=== PATIENT | male | born 1935 | race Caucasian/White ===

== ENCOUNTER → 2018-03-10 14:42 | Outpatient (CLI) | payer MEDICARE, BC, SELFPAY ==
--- NOTE | 2018-03-10 | DI.RAD.S_ITS ---
PROCEDURE: XR CHEST 2V INDICATIONS: ACUTE BRONCHITIS TECHNIQUE: 2 views of the chest were acquired. COMPARISON: [facility], , CHEST 1 VIEW, 09/15/2014, 14:08. [facility], , CHEST 2 VIEW, 11/05/2013, 12:27. FINDINGS: Surgical changes and devices: None. Lungs and pleura: No pleural effusions or pneumothorax. Lungs are clear. Mediastinum: Mediastinal contours are normal. Heart size is normal. Bones and chest wall: No suspicious bony abnormalities. Soft tissues appear unremarkable. IMPRESSION: No pneumonia found. Dictated by: Adan Stoll M.D. on 03/10/2018 at 15:32 Approved by: Adan Stoll M.D. on 03/10/2018 at 15:32
== END ==
PROVIDERS: PCP Internal Medicine; Visit Provider Student in an Organized Health Care Education/Training Program
DX: J20.9 Acute bronchitis, unspecified (principal)
CPT/HCPCS: 71046

== ENCOUNTER → 2018-03-25 14:28 | Outpatient (CLI) | payer MEDICARE, BC, SELFPAY ==
[2018-03-25 16:08] LABS: Hemoglobin A1C% w Est Avg Glu 6.4 % (4.0-6.0)
== END ==
PROVIDERS: PCP Internal Medicine; Visit Provider Internal Medicine
DX: E11.21 Type 2 diabetes mellitus with diabetic nephropathy (principal)
CPT/HCPCS: 36415; 83036

== ENCOUNTER → 2018-09-16 10:20 | Outpatient (CLI) | payer MEDICARE, BC, SELFPAY ==
[2018-09-16 11:37] LABS: Hemoglobin A1C% w Est Avg Glu 6.9 % (4.0-6.0)
[2018-09-16 11:47] LABS: Alanine Aminotransferase 81 IU/L (21-72); Albumin 4.5 g/dL (3.5-5.0); Albumin Globulin Ratio 1.8 (1.0-2.8); Alkaline Phosphatase 43 U/L (38-126); Aspartate Aminotransferase 53 IU/L (17-59); BUN Creatinine Ratio 12.9 (6-22); Bilirubin Total 0.5 mg/dL (0.2-1.3); Blood Urea Nitrogen 18 mg/dL (9-20); Calcium 9.9 mg/dL (8.4-10.2); Carbon Dioxide 24 mmol/L (22-32); Chloride 105 mmol/L (98-107); Cholesterol 155 mg/dL (140-199); Estimated Glomerular Filt Rate 48.3 mL/min (>60); Globulin 2.5 g/dL (1.7-4.1); Glucose 166 mg/dL (80-110); HDL Cholesterol 38 mg/dL (40-60); HEMOLYSIS < 15 (0-50); LDL Cholesterol Calculated 88 mg/dL (<100); Potassium 5.1 mmol/L (3.4-5.1); Sodium 141 mmol/L (137-145); Triglycerides 147 mg/dL (35-150)
[2018-09-16 12:16] LABS: Creatinine Urine Random 116.7 mg/dL
[2018-09-16 12:17] LABS: Prostate Specific Antigen Scrn 4.44 ng/mL (0.1-4.0)
[2018-09-16 12:21] LABS: Microalbumi Creatinin Ratio Ur 51.4 ug/mg CR (<30)
== END ==
PROVIDERS: PCP Student in an Organized Health Care Education/Training Program; Visit Provider Student in an Organized Health Care Education/Training Program
DX: N40.1 Benign prostatic hyperplasia with lower urinary tract symptoms (principal); I10 Essential (primary) hypertension; N18.9 Chronic kidney disease, unspecified; E78.1 Pure hyperglyceridemia; E11.40 Type 2 diabetes mellitus with diabetic neuropathy, unspecified; Z12.5 Encounter for screening for malignant neoplasm of prostate
CPT/HCPCS: 36415; 80053; 80061; 82043; 82570; 83036; G0103

== ENCOUNTER → 2018-09-22 15:35 | Outpatient (CLI) | payer MEDICARE, BC, SELFPAY ==
--- NOTE | 2018-09-22 | DI.RAD.S_ITS ---
PROCEDURE: XR CHEST 2V INDICATIONS: COUGH TECHNIQUE: 2 views of the chest were acquired. COMPARISON: [facility], , XR CHEST 2V, 03/10/2018, 14:24. [facility], , CHEST 1 VIEW, 09/15/2014, 14:08. FINDINGS: Surgical changes and devices: None. Lungs and pleura: No pleural effusions or pneumothorax. Lungs are clear. Tracheal air column is narrowed at the thoracic inlet to approximately half the normal diameter but this is stable over time. Mediastinum: Mediastinal contours are normal. Heart size is normal. Bones and chest wall: No suspicious bony abnormalities. Soft tissues appear unremarkable. IMPRESSION: No change of address clerk time, source of new cough symptoms is not seen. Note is made of a relative narrowing of the tracheal airway at the thoracic inlet but this has been previously present 11/05/13, without worsening. Dictated by: Adan Stoll M.D. on 09/22/2018 at 16:05 Approved by: Adan Stoll M.D. on 09/22/2018 at 16:05
== END ==
PROVIDERS: PCP Student in an Organized Health Care Education/Training Program; Visit Provider Student in an Organized Health Care Education/Training Program
DX: R05 Cough (principal)
CPT/HCPCS: 71046

== ENCOUNTER → 2018-09-26 12:14 | Outpatient (CLI) | payer MEDICARE, BC, SELFPAY ==
--- NOTE | 2018-09-26 | DI.US.S_ITS ---
PROCEDURE: US ABD AORTA ANEURYSM SCREEN INDICATIONS: SCREENING TECHNIQUE: Real time scanning was performed of the aorta and iliac arteries, with image documentation. COMPARISON: None. FINDINGS: Aorta: Proximal aortic is not visualized. Mid-aorta measures 2.3 cm. Distal aortic diameter is 2.0 cm. Iliac arteries: Right common iliac artery measures 1.5 cm. Left common iliac artery measures 1.4 cm. IMPRESSION: No aneurysmal dilation. Proximal aorta is not evaluated as it is not visualized. Dictated by: Radha Tierney M.D. on 09/26/2018 at 15:54 Approved by: Radha Tierney M.D. on 09/26/2018 at 15:55
== END ==
PROVIDERS: PCP Student in an Organized Health Care Education/Training Program; Visit Provider Student in an Organized Health Care Education/Training Program
DX: Z13.6 Encounter for screening for cardiovascular disorders (principal)
CPT/HCPCS: 76706

== ENCOUNTER → 2019-06-22 14:21 | Outpatient (CLI) | payer MEDICARE, OTHER, SELFPAY ==
--- NOTE | 2019-06-22 | DI.RAD.S_ITS ---
PROCEDURE: XR CHEST 2V INDICATIONS: ACUTE BRONCHITIS TECHNIQUE: 2 views of the chest were acquired. COMPARISON: [facility], CR, XR CHEST 2V, 09/22/2018, 15:41. CT abdomen pelvis 09/21/2015. FINDINGS: Surgical changes and devices: None. Lungs and pleura: No consolidation. Increased interstitial markings similar to the prior exam. No pleural effusions or pneumothorax. Mediastinum: Mediastinal contours are normal. Heart size is normal. Bones and chest wall: No suspicious bony abnormalities. Soft tissues appear unremarkable. IMPRESSION: No acute cardiopulmonary abnormality. Dictated by: Castillo Thomas M.D. on 06/22/2019 at 15:07 Approved by: Castillo Thomas M.D. on 06/22/2019 at 15:08
== END ==
PROVIDERS: PCP Student in an Organized Health Care Education/Training Program; Visit Provider Student in an Organized Health Care Education/Training Program
DX: J20.9 Acute bronchitis, unspecified (principal)
CPT/HCPCS: 71046

== ENCOUNTER → 2019-08-10 18:34 | Outpatient (ROUT) | payer MEDICARE, OTHER, SELFPAY ==
[2019-08-10 18:59] LABS: Add Manual Diff / Slide Review NO; Basophils Absolute Auto 0 /uL (0-100); Basophils Percent Auto 0.5 % (0-2); Eosinophils Absolute Auto 100 /uL (0-450); Eosinophils Percent Auto 0.7 % (2-4); Hematocrit 43.1 % (41-53); Hemoglobin 14.9 g/dL (13.5-17.5); Lymphocytes Absolute Auto 1600 /uL (1100-4500); Lymphocytes Percent Auto 21.6 % (25-40); Mean Corpuscular HGB Conc 34.5 % (30-36); Mean Corpuscular Hemoglobin 33.1 PG (26-34); Mean Corpuscular Volume 96.1 fL (80-100); Monocytes Absolute Auto 900 /uL (0-900); Monocytes Percent Auto 11.5 % (3-14); Neutrophils Absolute Auto 4900 /uL (1500-7000); Neutrophils Percent Auto 65.7 % (50-75); Platelet Count 212 X10^3/uL (150-400); Red Blood Cell Count 4.48 X10^6/uL (4.5-5.9); Red Cell Distribution Width 13.3 % (11.6-14.8); White Blood Cell Count 7.5 X10^3/uL (4.5-11.0)
[2019-08-10 19:03] LABS: Alanine Aminotransferase 45 IU/L (<50); Albumin 4.7 g/dL (3.5-5.0); Albumin Globulin Ratio 1.8 (1.0-2.8); Alkaline Phosphatase 52 U/L (38-126); Aspartate Aminotransferase 33 IU/L (17-59); BUN Creatinine Ratio 24.6 (6-22); Bilirubin Total 0.5 mg/dL (0.2-1.3); Blood Urea Nitrogen 32 mg/dL (9-20); Calcium 10.6 mg/dL (8.4-10.2); Carbon Dioxide 19 mmol/L (22-32); Chloride 105 mmol/L (98-107); Estimated Glomerular Filt Rate 52.5 mL/min (>60); Globulin 2.6 g/dL (1.7-4.1); Glucose 149 mg/dL (80-110); HEMOLYSIS 17 (0-50); Potassium 4.7 mmol/L (3.4-5.1); Sodium 138 mmol/L (137-145); Total Protein 7.3 g/dL (6.3-8.2)
== END ==
PROVIDERS: PCP Student in an Organized Health Care Education/Training Program; Visit Provider Student in an Organized Health Care Education/Training Program
DX: G47.62 Sleep related leg cramps (principal); N18.9 Chronic kidney disease, unspecified; I10 Essential (primary) hypertension; E11.21 Type 2 diabetes mellitus with diabetic nephropathy
CPT/HCPCS: 80053; 85025

== ENCOUNTER 2019-08-26 14:30 | Outpatient (RCR) | payer MEDICARE, OTHER, SELFPAY ==
--- NOTE | 2019-07-13 16:45 | PT.OIE ---
Current Diagnoses Sciatica, left side (07/13/19) Visit Care Team Role Provider Type Yudith Ugalde PA-C Attending Provider Physician Primary Care Provider Specialty: Internal Medicine Address: [address] [place] [address], [id number] Email: [email or web address] Physical Therapy Initial Evaluation PT-OP-A Visit Information Start: 07/13/19 07:26 Freq: Status: Active Protocol: Document 07/13/19 15:30 MB (Rec: 07/13/19 16:21 MB [id number]) Out-Patient Physical Therapy Visit Information Visit Information Visit Type Initial Evaluation Visit Note Medicare, unlimited visits Visit Start Time 15:30 Visit Stop Time 16:20 Total Visit Minutes 50 Visit Number 1/unlimited Number of SHOE FOLDER Visits 0 PT-OP-B Current Condition Start: 07/13/19 07:26 Freq: Status: Active Protocol: Document 07/13/19 15:30 MB (Rec: 07/13/19 16:21 MB [id number]) Current Condition History of Current Condition Onset Date 2 weeks left hip and 1 week right foot Current Complaints Pt reports that he saw provider 2 weeks ago for left hip pain History of Current Condition Pt had been having foot pain for a long time and it took forever to get into the power transformer repair supervisor. He had plantar fasciitis in left foot 01/25. He got a boot. He then had a fall in the shower room of the pool, hit his right knee on the bench and pulled his left hamstring and calf. His left hip bothered him after that. He walked differently after the hamstring injury. He recently got inserts put in his shoes by power transformer repair supervisor 1 week ago and it did something to his walking and it pinches in his right hip. PMH includes: DM2, neuropathy, glaucoma and does not drive. Prior Treatments and Tests He sees power transformer repair supervisor for diabetic neuropathy. He got his right great toe nail cut back. He has little sensation in both feet. He was told that he has good circulation in his feet. Pt has superfeet orthotics in shoes that have parts added by power transformer repair supervisor. Pt states that the orthotics first helped him walk toe-heel better but then his right hip started hurting. He has not talked to power transformer repair supervisor again. He has a follow-up in September. These are the only inserts that pt has. Pt goes to the pool, his feet hurt. He does not have pool shoes. He is barefoot when getting OOB at night. Treatment Goals Patient/Caregiver Goals Goal for PT is to decrease pain. PT-OP-C Subjective Start: 07/13/19 07:26 Freq: Status: Active Protocol: Document 07/13/19 15:30 MB (Rec: 07/13/19 16:24 MB [id number]) OP-PT Subjective Patient Comments Patient Comments To decrease pain PT-OP-J Posture/Palpation/Skin Start: 07/13/19 07:26 Freq: Status: Active Protocol: Document 07/13/19 15:30 MB (Rec: 07/13/19 16:44 MB [id number]) Posture Evaluation Comments Posture Comments Standing: forward head and shoulders, flexed trunk. Tragus 3 in front of AC joint , decreased thoracic kyphosis and lumbar lordosis, lumbar spinous processes posteriorly protruding, left iliac crest higher than the right. R pes planus greater than the left. PT-OP-M Strength Start: 07/13/19 07:26 Freq: Status: Active Protocol: Document 07/13/19 15:30 MB (Rec: 07/13/19 16:44 MB [id number]) Hip Strength Hip Manual Muscle Testing Left Flexion (L2) 3 Fair Abduction 4 Good Comments Sitting Right Flexion (L2) 3 Fair Abduction 3- Fair- Comments Sitting Knee Strength Knee Manual Muscle Testing Left Flexion (S2) 4 Good Extension (L3) 5 Normal Right Flexion (S2) 4 Good Extension (L3) 5 Normal Ankle/Foot Strength Ankle and Foot Manual Muscle Testing Both Comments Pt with limited AROM B feet, he has B decreased sensation and hx diabetic neuropathy. MMT is not accurate d/t decreased ROM, neuropathy. PT-OP-Q Treatments Start: 07/13/19 07:26 Freq: Status: Active Protocol: Document 07/13/19 15:30 MB (Rec: 07/13/19 16:44 MB [id number]) Self-Care/Home Management Treatment Education Other Education Extensive education: no barefoot walking, get aquatic shoes before return to pool d/ t c/o pain with walking barefoot on concrete, trying his [employer] shoes with orthotics altered by power transformer repair supervisor and then with the inserts that came in them to determine a change in hip pain; pillow support between knees in side lying. PT-OP-T Assessment and Plan Start: 07/13/19 07:26 Freq: Status: Active Protocol: Document 07/13/19 15:30 MB (Rec: 07/13/19 16:44 MB [id number]) Physical Therapy Assessment Rehab Potential Rehabilitation Potential Fair Impairments Impairments Balance,Gait,Integument,Pain, Posture,ROM,Sensation,Soft Tissue Mobility,Strength Goals 4 Half-Way Goal (LTG) Pt will perform progressive HEP including pelvic realignment, flexibility, core and LE strengthening and balance exercises with I by 09/12/19. LTG Duration 8 weeks 3 Front End Technician Goal (LTG) Pt will present with improved B hip flexion and abduction strength to at least 4/5 with MMT by 09/12/19. LTG Duration 8 weeks 2 Half-Way Goal (LTG) Pt will report a 50% improvement in B hip pain by . LTG Duration 8 weeks 1 Half-Way Goal (LTG) Pt will perform WNLs on a standardized balance test to decrease fall risk by 09/12/19. LTG Duration 8 weeks Assessment Summary Assessment Pt is an 84 y/o male presenting with B hip pain for at least 2 weeks. He reports initial left hip pain that changed to his right hip after his power transformer repair supervisor altered his Super Feet inserts. Pt presents with pelvic obliquities, B hip and knee weakness and imbalance with standing. He has a history of diabetic neuropathy and foot changes and this is likely affecting his gait and proximal extremity pain. He will benefit from PT for pelvic realignment, flexibility, strengthening, balance and manual work. Physical Therapy Plan Frequency and Duration Frequency of Treatment 2x/Week Duration of Treatment 8 weeks Plan of Care Start Date 07/13/19 Plan of Care End Date 09/12/19 Therapeutic Interventions Therapeutic Interventions Aquatic Therapy,Balance Training,Gait Training,Home Exercise Program,Joint Mobilizations,Manual Therapy, Neuromuscular Re-education, Orthotic/Prosthetic Management ,Patient/Caregiver Education, Self-Care/Home Management,Soft Tissue Mobilization,Taping, Therapeutic Exercises Modalities Cold Pack/Ice Massage,Electric Stimulation,Hot Packs, Ultrasound Next Visit Focus/Plan Next Note Type Treatment Note Next Visit Plan Initiate pelvic realignment exercises and hamstring with calf and hip stretches with belt
--- NOTE | 2019-07-13 16:45 | PT.OPPOC ---
Current Diagnoses Sciatica, left side (07/13/19) Visit Care Team Role Provider Type Yudith Ugalde PA-C Attending Provider Physician Primary Care Provider Specialty: Internal Medicine Address: [address] [place] [address], [phone] Email: [email or web address] Plan Of Care PT-OP-T Assessment and Plan Start: 07/13/19 07:26 Freq: Status: Active Protocol: Document 07/13/19 15:30 MB (Rec: 07/13/19 16:44 MB [id number]) Physical Therapy Assessment Rehab Potential Rehabilitation Potential Fair Impairments Impairments Balance,Gait,Integument,Pain, Posture,ROM,Sensation,Soft Tissue Mobility,Strength Goals 4 Detention Goal (LTG) Pt will perform progressive HEP including pelvic realignment, flexibility, core and LE strengthening and balance exercises with I by 09/12/19. LTG Duration 8 weeks 3 Detention Goal (LTG) Pt will present with improved B hip flexion and abduction strength to at least 4/5 with MMT by 09/12/19. LTG Duration 8 weeks 2 Radiologic Tech Goal (LTG) Pt will report a 50% improvement in B hip pain by . LTG Duration 8 weeks 1 Detention Goal (LTG) Pt will perform WNLs on a standardized balance test to decrease fall risk by 09/12/19. LTG Duration 8 weeks Assessment Summary Assessment Pt is an 84 y/o male presenting with B hip pain for at least 2 weeks. He reports initial left hip pain that changed to his right hip after his director of special education altered his Super Feet inserts. Pt presents with pelvic obliquities, B hip and knee weakness and imbalance with standing. He has a history of diabetic neuropathy and foot changes and this is likely affecting his gait and proximal extremity pain. He will benefit from PT for pelvic realignment, flexibility, strengthening, balance and manual work. Physical Therapy Plan Frequency and Duration Frequency of Treatment 2x/Week Duration of Treatment 8 weeks Plan of Care Start Date 07/13/19 Plan of Care End Date 09/12/19 Therapeutic Interventions Therapeutic Interventions Aquatic Therapy,Balance Training,Gait Training,Home Exercise Program,Joint Mobilizations,Manual Therapy, Neuromuscular Re-education, Orthotic/Prosthetic Management ,Patient/Caregiver Education, Self-Care/Home Management,Soft Tissue Mobilization,Taping, Therapeutic Exercises Modalities Cold Pack/Ice Massage,Electric Stimulation,Hot Packs, Ultrasound Next Visit Focus/Plan Next Note Type Treatment Note Next Visit Plan Initiate pelvic realignment exercises and hamstring with calf and hip stretches with belt Plan of Care Dates Plan of Care Start Date 07/13/19 Plan of Care End Date 09/12/19
--- NOTE | 2019-07-15 15:56 | PT.OTN ---
Current Diagnoses Sciatica, left side (07/15/19) Physical Therapy Treatment Note PT-OP-A Visit Information Start: 07/13/19 07:26 Freq: Status: Active Protocol: Document 07/15/19 15:18 MB (Rec: 07/15/19 15:56 MB [id number]) Out-Patient Physical Therapy Visit Information Visit Information Visit Type Treatment Note Visit Note Medicare, unlimited visits Visit Start Time 15:18 Visit Stop Time 15:56 Total Visit Minutes 38 Visit Number 2/unlimited Number of SHINGLE PACKER Visits 0 PT-OP-B Current Condition Start: 07/13/19 07:26 Freq: Status: Active Protocol: Document 07/13/19 15:30 MB (Rec: 07/13/19 16:21 MB [id number]) Current Condition History of Current Condition Onset Date 2 weeks left hip and 1 week right foot Current Complaints Pt reports that he saw provider 2 weeks ago for left hip pain History of Current Condition Pt had been having foot pain for a long time and it took forever to get into the communications department head. He had plantar fasciitis in left foot 01/25. He got a boot. He then had a fall in the shower room of the pool, hit his right knee on the bench and pulled his left hamstring and calf. His left hip bothered him after that. He walked differently after the hamstring injury. He recently got inserts put in his shoes by communications department head 1 week ago and it did something to his walking and it pinches in his right hip. PMH includes: DM2, neuropathy, glaucoma and does not drive. Prior Treatments and Tests He sees communications department head for diabetic neuropathy. He got his right great toe nail cut back. He has little sensation in both feet. He was told that he has good circulation in his feet. Pt has superfeet orthotics in shoes that have parts added by communications department head. Pt states that the orthotics first helped him walk toe-heel better but then his right hip started hurting. He has not talked to communications department head again. He has a follow-up in September. These are the only inserts that pt has. Pt goes to the pool, his feet hurt. He does not have pool shoes. He is barefoot when getting OOB at night. Treatment Goals Patient/Caregiver Goals Goal for PT is to decrease pain. PT-OP-C Subjective Start: 07/13/19 07:26 Freq: Status: Active Protocol: Document 07/15/19 15:18 MB (Rec: 07/15/19 15:56 MB [id number]) OP-PT Subjective Patient Comments Patient Comments Pt states that he had to put his orthotics back in because wearing his shoes with regular inserts hurt his right hip worse. PT-OP-J Posture/Palpation/Skin Start: 07/13/19 07:26 Freq: Status: Active Protocol: Document 07/13/19 15:30 MB (Rec: 07/13/19 16:44 MB [id number]) Posture Evaluation Comments Posture Comments Standing: forward head and shoulders, flexed trunk. Tragus 3 in front of AC joint , decreased thoracic kyphosis and lumbar lordosis, lumbar spinous processes posteriorly protruding, left iliac crest higher than the right. R pes planus greater than the left. PT-OP-M Strength Start: 07/13/19 07:26 Freq: Status: Active Protocol: Document 07/13/19 15:30 MB (Rec: 07/13/19 16:44 MB [id number]) Hip Strength Hip Manual Muscle Testing Left Flexion (L2) 3 Fair Abduction 4 Good Comments Sitting Right Flexion (L2) 3 Fair Abduction 3- Fair- Comments Sitting Knee Strength Knee Manual Muscle Testing Left Flexion (S2) 4 Good Extension (L3) 5 Normal Right Flexion (S2) 4 Good Extension (L3) 5 Normal Ankle/Foot Strength Ankle and Foot Manual Muscle Testing Both Comments Pt with limited AROM B feet, he has B decreased sensation and hx diabetic neuropathy. MMT is not accurate d/t decreased ROM, neuropathy. PT-OP-Q Treatments Start: 07/13/19 07:26 Freq: Status: Active Protocol: Document 07/15/19 15:18 MB (Rec: 07/15/19 15:56 MB [id number]) Therapeutic Exercises Supine Exercises Pelvic realignment alignment Comments Added to HEP, pelvic realignment exercises Hamstring, calf and AP stretch Comments Hamstring calf and AP stretch with belt Standing Exercises Racquet ball massage glutes Comments Racquet ball massage glutes and TFL PT-OP-T Assessment and Plan Start: 07/13/19 07:26 Freq: Status: Active Protocol: Document 07/15/19 15:18 MB (Rec: 07/15/19 15:56 [id number]) Physical Therapy Assessment Goals 4 Correction Goal (LTG) Pt will perform progressive HEP including pelvic realignment, flexibility, core and LE strengthening and balance exercises with I by 09/12/19. LTG Duration 8 weeks 3 Physician Extender Goal (LTG) Pt will present with improved B hip flexion and abduction strength to at least 4/5 with MMT by 09/12/19. LTG Duration 8 weeks 2 Physician Extender Goal (LTG) Pt will report a 50% improvement in B hip pain by . LTG Duration 8 weeks 1 Physician Extender Goal (LTG) Pt will perform WNLs on a standardized balance test to decrease fall risk by 09/12/19. LTG Duration 8 weeks Assessment Summary Assessment Ed pt in things to buy for PT- -balls, belt, aquatic shoes. Initiated alignment and flexibility exercises, review and progress as helpful. Extra time required to teach exercises. Physical Therapy Plan Frequency and Duration Frequency of Treatment 2x/Week Duration of Treatment 8 weeks Plan of Care Start Date 07/13/19 Plan of Care End Date 09/12/19 Therapeutic Interventions Therapeutic Interventions Aquatic Therapy,Balance Training,Gait Training,Home Exercise Program,Joint Mobilizations,Manual Therapy, Neuromuscular Re-education, Orthotic/Prosthetic Management ,Patient/Caregiver Education, Self-Care/Home Management,Soft Tissue Mobilization,Taping, Therapeutic Exercises Modalities Cold Pack/Ice Massage,Electric Stimulation,Hot Packs, Ultrasound Next Visit Focus/Plan Next Note Type Treatment Note Next Visit Plan Con't flexibliity and self- massage progression and review HEP
--- NOTE | 2019-07-22 15:14 | PT.OTN ---
Current Diagnoses Sciatica, left side (07/22/19) Physical Therapy Treatment Note PT-OP-A Visit Information Start: 07/13/19 07:26 Freq: Status: Active Protocol: Document 07/22/19 14:32 MB (Rec: 07/22/19 15:14 MB [id number]) Out-Patient Physical Therapy Visit Information Visit Information Visit Type Treatment Note Visit Note Medicare, unlimited visits Visit Start Time 14:32 Visit Stop Time 13:12 Total Visit Minutes 40 Visit Number 3/unlimited Number of PRIMER AND POWDER CANNING LEADER Visits 0 PT-OP-B Current Condition Start: 07/13/19 07:26 Freq: Status: Active Protocol: Document 07/13/19 15:30 MB (Rec: 07/13/19 16:21 MB [id number]) Current Condition History of Current Condition Onset Date 2 weeks left hip and 1 week right foot Current Complaints Pt reports that he saw provider 2 weeks ago for left hip pain History of Current Condition Pt had been having foot pain for a long time and it took forever to get into the speech pathology supervisor. He had plantar fasciitis in left foot 01/25. He got a boot. He then had a fall in the shower room of the pool, hit his right knee on the bench and pulled his left hamstring and calf. His left hip bothered him after that. He walked differently after the hamstring injury. He recently got inserts put in his shoes by speech pathology supervisor 1 week ago and it did something to his walking and it pinches in his right hip. PMH includes: DM2, neuropathy, glaucoma and does not drive. Prior Treatments and Tests He sees speech pathology supervisor for diabetic neuropathy. He got his right great toe nail cut back. He has little sensation in both feet. He was told that he has good circulation in his feet. Pt has superfeet orthotics in shoes that have parts added by speech pathology supervisor. Pt states that the orthotics first helped him walk toe-heel better but then his right hip started hurting. He has not talked to speech pathology supervisor again. He has a follow-up in September. These are the only inserts that pt has. Pt goes to the pool, his feet hurt. He does not have pool shoes. He is barefoot when getting OOB at night. Treatment Goals Patient/Caregiver Goals Goal for PT is to decrease pain. PT-OP-C Subjective Start: 07/13/19 07:26 Freq: Status: Active Protocol: Document 07/22/19 14:32 MB (Rec: 07/22/19 15:14 MB [id number]) OP-PT Subjective Patient Comments Patient Comments Pt got all his purchases and is feeling better. He did get sore when he used the racquet ball too long in his right QL area. PT-OP-J Posture/Palpation/Skin Start: 07/13/19 07:26 Freq: Status: Active Protocol: Document 07/13/19 15:30 MB (Rec: 07/13/19 16:44 MB [id number]) Posture Evaluation Comments Posture Comments Standing: forward head and shoulders, flexed trunk. Tragus 3 in front of AC joint , decreased thoracic kyphosis and lumbar lordosis, lumbar spinous processes posteriorly protruding, left iliac crest higher than the right. R pes planus greater than the left. PT-OP-M Strength Start: 07/13/19 07:26 Freq: Status: Active Protocol: Document 07/13/19 15:30 MB (Rec: 07/13/19 16:44 MB [id number]) Hip Strength Hip Manual Muscle Testing Left Flexion (L2) 3 Fair Abduction 4 Good Comments Sitting Right Flexion (L2) 3 Fair Abduction 3- Fair- Comments Sitting Knee Strength Knee Manual Muscle Testing Left Flexion (S2) 4 Good Extension (L3) 5 Normal Right Flexion (S2) 4 Good Extension (L3) 5 Normal Ankle/Foot Strength Ankle and Foot Manual Muscle Testing Both Comments Pt with limited AROM B feet, he has B decreased sensation and hx diabetic neuropathy. MMT is not accurate d/t decreased ROM, neuropathy. PT-OP-Q Treatments Start: 07/13/19 07:26 Freq: Status: Active Protocol: Document 07/22/19 14:32 MB (Rec: 07/22/19 15:14 MB [id number]) Therapeutic Exercises Supine Exercises Racquet ball calf with AP Comments Performed B and added to HEP Racquet ball glutes and QL Comments Pt had pain with racquet ball massage right OL standing, add supine Pelvic realignment alignment Comments Performed pelvic realignment exercises Sitting Exercises Racquet ball massage plantar fascia Comments Plantar fascia massage with racquet ball PT-OP-T Assessment and Plan Start: 07/13/19 07:26 Freq: Status: Active Protocol: Document 07/22/19 14:32 MB (Rec: 07/22/19 15:14 MB [id number]) Physical Therapy Assessment Goals [address] Goal (LTG) Pt will perform progressive HEP including pelvic realignment, flexibility, core and LE strengthening and balance exercises with I by 09/12/19. LTG Duration [address] Goal (LTG) Pt will present with improved B hip flexion and abduction strength to at least 4/5 with MMT by 09/12/19. LTG Duration 8 weeks 2 Residential Goal (LTG) Pt will report a 50% improvement in B hip pain by . LTG Duration 8 weeks 1 Residential Goal (LTG) Pt will perform WNLs on a standardized balance test to decrease fall risk by 09/12/19. LTG Duration 8 weeks Assessment Summary Assessment Pt bought water shoes and is wearing them at the pool. He has racquet balls and ball for pelvic realignment exercises. He requires re-training not to overdo massage with racquet ball and performing 3 pelvic realignment exercises. Con't progression. Physical Therapy Plan Frequency and Duration Frequency of Treatment 2x/Week Duration of Treatment 8 weeks Plan of Care Start Date 07/13/19 Plan of Care End Date 09/12/19 Therapeutic Interventions Therapeutic Interventions Aquatic Therapy,Balance Training,Gait Training,Home Exercise Program,Joint Mobilizations,Manual Therapy, Neuromuscular Re-education, Orthotic/Prosthetic Management ,Patient/Caregiver Education, Self-Care/Home Management,Soft Tissue Mobilization,Taping, Therapeutic Exercises Modalities Cold Pack/Ice Massage,Electric Stimulation,Hot Packs, Ultrasound Next Visit Focus/Plan Next Note Type Treatment Note Next Visit Plan Con't flexibliity and self- massage progression and review HEP
--- NOTE | 2019-07-29 15:26 | PT.OTN ---
Current Diagnoses Sciatica, left side (07/29/19) Physical Therapy Treatment Note PT-OP-A Visit Information Start: 07/13/19 07:26 Freq: Status: Active Protocol: Document 07/29/19 14:32 MB (Rec: 07/29/19 15:00 MB [id number]) Out-Patient Physical Therapy Visit Information Visit Information Visit Type Treatment Note Visit Note Medicare, unlimited visits Visit Start Time 14:32 Visit Stop Time 15:12 Total Visit Minutes 40 Visit Number 4/unlimited Number of WIGS SALESPERSON Visits 0 PT-OP-B Current Condition Start: 07/13/19 07:26 Freq: Status: Active Protocol: Document 07/13/19 15:30 MB (Rec: 07/13/19 16:21 MB [id number]) Current Condition History of Current Condition Onset Date 2 weeks left hip and 1 week right foot Current Complaints Pt reports that he saw provider 2 weeks ago for left hip pain History of Current Condition Pt had been having foot pain for a long time and it took forever to get into the lacquer machine feeder. He had plantar fasciitis in left foot 01/25. He got a boot. He then had a fall in the shower room of the pool, hit his right knee on the bench and pulled his left hamstring and calf. His left hip bothered him after that. He walked differently after the hamstring injury. He recently got inserts put in his shoes by lacquer machine feeder 1 week ago and it did something to his walking and it pinches in his right hip. PMH includes: DM2, neuropathy, glaucoma and does not drive. Prior Treatments and Tests He sees lacquer machine feeder for diabetic neuropathy. He got his right great toe nail cut back. He has little sensation in both feet. He was told that he has good circulation in his feet. Pt has superfeet orthotics in shoes that have parts added by lacquer machine feeder. Pt states that the orthotics first helped him walk toe-heel better but then his right hip started hurting. He has not talked to lacquer machine feeder again. He has a follow-up in September. These are the only inserts that pt has. Pt goes to the pool, his feet hurt. He does not have pool shoes. He is barefoot when getting OOB at night. Treatment Goals Patient/Caregiver Goals Goal for PT is to decrease pain. PT-OP-C Subjective Start: 07/13/19 07:26 Freq: Status: Active Protocol: Document 07/29/19 14:32 MB (Rec: 07/29/19 15:00 MB [id number]) OP-PT Subjective Patient Comments Patient Comments Pt states that his pain is way better. He feels most stiff after sitting. He likes the racquet ball massage. He reports that his hamstrings and rib muscles spasm a lot. PT-OP-J Posture/Palpation/Skin Start: 07/13/19 07:26 Freq: Status: Active Protocol: Document 07/13/19 15:30 MB (Rec: 07/13/19 16:44 MB [id number]) Posture Evaluation Comments Posture Comments Standing: forward head and shoulders, flexed trunk. Tragus 3 in front of AC joint , decreased thoracic kyphosis and lumbar lordosis, lumbar spinous processes posteriorly protruding, left iliac crest higher than the right. R pes planus greater than the left. PT-OP-M Strength Start: 07/13/19 07:26 Freq: Status: Active Protocol: Document 07/13/19 15:30 MB (Rec: 07/13/19 16:44 MB [id number]) Hip Strength Hip Manual Muscle Testing Left Flexion (L2) 3 Fair Abduction 4 Good Comments Sitting Right Flexion (L2) 3 Fair Abduction 3- Fair- Comments Sitting Knee Strength Knee Manual Muscle Testing Left Flexion (S2) 4 Good Extension (L3) 5 Normal Right Flexion (S2) 4 Good Extension (L3) 5 Normal Ankle/Foot Strength Ankle and Foot Manual Muscle Testing Both Comments Pt with limited AROM B feet, he has B decreased sensation and hx diabetic neuropathy. MMT is not accurate d/t decreased ROM, neuropathy. PT-OP-Q Treatments Start: 07/13/19 07:26 Freq: Status: Active Protocol: Document 07/29/19 14:32 MB (Rec: 07/29/19 15:00 MB [id number]) Therapeutic Exercises Supine Exercises Modified hip flexor stretch in supine Comments One leg bent and foot on mattress: opposite hip flexor stretch Pelvic realignment alignment Comments Performed this date with cues, 5 reps each exercise Hamstring, calf and AP stretch Comments Hamstring calf and AP stretch with belt Self-Care/Home Management Treatment Education Other Education Extensive education about following up with provider about non-caffeinated fluid intake, decreasing cups of coffee, possible electrolyte imbalance in setting of muscle cramping and spasming. PT-OP-T Assessment and Plan Start: 07/13/19 07:26 Freq: Status: Active Protocol: Document 07/29/19 14:32 MB (Rec: 07/29/19 15:00 MB [id number]) Physical Therapy Assessment Goals 4 [facility]cf Goal (LTG) Pt will perform progressive HEP including pelvic realignment, flexibility, core and LE strengthening and balance exercises with I by 09/12/19. LTG Duration 8 weeks 3 Cured Meat Packing Supervisor Goal (LTG) Pt will present with improved B hip flexion and abduction strength to at least 4/5 with MMT by 09/12/19. LTG Duration 8 weeks 2 Cured Meat Packing Supervisor Goal (LTG) Pt will report a 50% improvement in B hip pain by . LTG Duration 8 weeks 1 Cured Meat Packing Supervisor Goal (LTG) Pt will perform WNLs on a standardized balance test to decrease fall risk by 09/12/19. LTG Duration 8 weeks Assessment Summary Assessment Pt c/o left groin pain when he stretches out left leg. Aniticipate some degenerative changes contributing to pelvic obliquities. Possible electrolyte and dehydration issues contribute to muscle pain and this limits manual work and muscle strengthening this date. PT encourages pt to follow-up with provider about this. Physical Therapy Plan Frequency and Duration Frequency of Treatment 2x/Week Duration of Treatment 8 weeks Plan of Care Start Date 07/13/19 Plan of Care End Date 09/12/19 Therapeutic Interventions Therapeutic Interventions Aquatic Therapy,Balance Training,Gait Training,Home Exercise Program,Joint Mobilizations,Manual Therapy, Neuromuscular Re-education, Orthotic/Prosthetic Management ,Patient/Caregiver Education, Self-Care/Home Management,Soft Tissue Mobilization,Taping, Therapeutic Exercises Modalities Cold Pack/Ice Massage,Electric Stimulation,Hot Packs, Ultrasound Other Referrals/Consults Referrals/Consults Recommended Recommend possible orthopedic referral for left hip pain, possible dxs both hips to compare for any degenerative/ arthritic changes. Decreased tolerance of hip extension and flexion and reports of left groin and B lateral hip and SI pain suspicious for degenerative changes Next Visit Focus/Plan Next Note Type Treatment Note Next Visit Plan Con't flexibliity and self- massage progression and review HEP
--- NOTE | 2019-07-31 14:32 | PT.OTN ---
Current Diagnoses Sciatica, left side (07/31/19) Physical Therapy Treatment Note PT-OP-A Visit Information Start: 07/13/19 07:26 Freq: Status: Active Protocol: Document 07/31/19 13:46 MB (Rec: 07/31/19 14:32 MB [id number]) Out-Patient Physical Therapy Visit Information Visit Information Visit Type Treatment Note Visit Note Medicare, unlimited visits Visit Start Time 13:46 Visit Stop Time 15:26 Total Visit Minutes 40 Visit Number 5/unlimited Number of BUNKER WORKER Visits 0 PT-OP-B Current Condition Start: 07/13/19 07:26 Freq: Status: Active Protocol: Document 07/13/19 15:30 MB (Rec: 07/13/19 16:21 MB [id number]) Current Condition History of Current Condition Onset Date 2 weeks left hip and 1 week right foot Current Complaints Pt reports that he saw provider 2 weeks ago for left hip pain History of Current Condition Pt had been having foot pain for a long time and it took forever to get into the paving contractor. He had plantar fasciitis in left foot 01/25. He got a boot. He then had a fall in the shower room of the pool, hit his right knee on the bench and pulled his left hamstring and calf. His left hip bothered him after that. He walked differently after the hamstring injury. He recently got inserts put in his shoes by paving contractor 1 week ago and it did something to his walking and it pinches in his right hip. PMH includes: DM2, neuropathy, glaucoma and does not drive. Prior Treatments and Tests He sees paving contractor for diabetic neuropathy. He got his right great toe nail cut back. He has little sensation in both feet. He was told that he has good circulation in his feet. Pt has superfeet orthotics in shoes that have parts added by paving contractor. Pt states that the orthotics first helped him walk toe-heel better but then his right hip started hurting. He has not talked to paving contractor again. He has a follow-up in September. These are the only inserts that pt has. Pt goes to the pool, his feet hurt. He does not have pool shoes. He is barefoot when getting OOB at night. Treatment Goals Patient/Caregiver Goals Goal for PT is to decrease pain. PT-OP-C Subjective Start: 07/13/19 07:26 Freq: Status: Active Protocol: Document 07/31/19 13:46 MB (Rec: 07/31/19 14:32 MB [id number]) OP-PT Subjective Patient Comments Patient Comments Pt states that exercises are helpful. He thinks that the ball massages are helpful. He has an appointment with PA on 08/10/19. He reports ongoing right hip pain and wonders about work-up. PT agrees that this is a good plan. He denies any leg cramps since increasing water earlier this week. PT-OP-J Posture/Palpation/Skin Start: 07/13/19 07:26 Freq: Status: Active Protocol: Document 07/13/19 15:30 MB (Rec: 07/13/19 16:44 MB [id number]) Posture Evaluation Comments Posture Comments Standing: forward head and shoulders, flexed trunk. Tragus 3 in front of AC joint , decreased thoracic kyphosis and lumbar lordosis, lumbar spinous processes posteriorly protruding, left iliac crest higher than the right. R pes planus greater than the left. PT-OP-M Strength Start: 07/13/19 07:26 Freq: Status: Active Protocol: Document 07/13/19 15:30 MB (Rec: 07/13/19 16:44 MB [id number]) Hip Strength Hip Manual Muscle Testing Left Flexion (L2) 3 Fair Abduction 4 Good Comments Sitting Right Flexion (L2) 3 Fair Abduction 3- Fair- Comments Sitting Knee Strength Knee Manual Muscle Testing Left Flexion (S2) 4 Good Extension (L3) 5 Normal Right Flexion (S2) 4 Good Extension (L3) 5 Normal Ankle/Foot Strength Ankle and Foot Manual Muscle Testing Both Comments Pt with limited AROM B feet, he has B decreased sensation and hx diabetic neuropathy. MMT is not accurate d/t decreased ROM, neuropathy. PT-OP-Q Treatments Start: 07/13/19 07:26 Freq: Status: Active Protocol: Document 07/31/19 13:46 MB (Rec: 07/31/19 14:32 MB [id number]) Therapeutic Exercises Supine Exercises Modified hip flexor stretch in supine Comments Performed today, opposite leg bent and stretching leg straight Standing Exercises Racquet ball massage glutes Comments STM racquet ball TFL, glutes Manual Therapy Treatment Other Other Manual Treatments Pt lying over plinth, kneeling on wedge and then prone with support: MWM right hip rotators and then B sacrotuberous STM, gentle PA mob through right femur with hips over pillow--perform B in future treatment dates. PT-OP-T Assessment and Plan Start: 07/13/19 07:26 Freq: Status: Active Protocol: Document 07/31/19 13:46 MB (Rec: 07/31/19 14:32 MB [id number]) Physical Therapy Assessment Goals 4 Director Of Agronomy Goal (LTG) Pt will perform progressive HEP including pelvic realignment, flexibility, core and LE strengthening and balance exercises with I by 09/12/19. LTG Duration 8 weeks 3 Director Of Agronomy Goal (LTG) Pt will present with improved B hip flexion and abduction strength to at least 4/5 with MMT by 09/12/19. LTG Duration 8 weeks 2 Director Of Agronomy Goal (LTG) Pt will report a 50% improvement in B hip pain by . LTG Duration 8 weeks 1 Director Of Agronomy Goal (LTG) Pt will perform WNLs on a standardized balance test to decrease fall risk by 09/12/19. LTG Duration 8 weeks Assessment Summary Assessment Recommend work up for right hip pain, following up with PA 08/10/19. Con't gentle hip mobs, PA B and consider AP. Physical Therapy Plan Frequency and Duration Frequency of Treatment 2x/Week Duration of Treatment 8 weeks Plan of Care Start Date 07/13/19 Plan of Care End Date 09/12/19 Therapeutic Interventions Therapeutic Interventions Aquatic Therapy,Balance Training,Gait Training,Home Exercise Program,Joint Mobilizations,Manual Therapy, Neuromuscular Re-education, Orthotic/Prosthetic Management ,Patient/Caregiver Education, Self-Care/Home Management,Soft Tissue Mobilization,Taping, Therapeutic Exercises Modalities Cold Pack/Ice Massage,Electric Stimulation,Hot Packs, Ultrasound Other Referrals/Consults Referrals/Consults Recommended Recommend possible orthopedic referral for right hip pain, possible dxs both hips to compare for any degenerative/ arthritic changes. Decreased tolerance of hip extension and flexion and reports of right groin and B lateral hip and SI pain suspicious for degenerative changes. Also ed pt to talk with PA about right hip pain, electrolytes. Next Visit Focus/Plan Next Note Type Treatment Note Next Visit Plan Con't progressive exercises
--- NOTE | 2019-08-04 14:30 | PT.OTN ---
Current Diagnoses Sciatica, left side (08/04/19) Physical Therapy Treatment Note PT-OP-A Visit Information Start: 07/13/19 07:26 Freq: Status: Active Protocol: Document 08/04/19 13:51 SP (Rec: 08/04/19 15:03 SP [id number]) Out-Patient Physical Therapy Visit Information Visit Information Visit Type Treatment Note Visit Note Medicare, unlimited visits Visit Start Time 13:51 Visit Stop Time 14:30 Total Visit Minutes 41 Visit Number 6/unlimited Number of WEB MARKETING ASSISTANT Visits 1 PT-OP-B Current Condition Start: 07/13/19 07:26 Freq: Status: Active Protocol: Document 07/13/19 15:30 MB (Rec: 07/13/19 16:21 MB [id number]) Current Condition History of Current Condition Onset Date 2 weeks left hip and 1 week right foot Current Complaints Pt reports that he saw provider 2 weeks ago for left hip pain History of Current Condition Pt had been having foot pain for a long time and it took forever to get into the bank officer. He had plantar fasciitis in left foot 01/25. He got a boot. He then had a fall in the shower room of the pool, hit his right knee on the bench and pulled his left hamstring and calf. His left hip bothered him after that. He walked differently after the hamstring injury. He recently got inserts put in his shoes by bank officer 1 week ago and it did something to his walking and it pinches in his right hip. PMH includes: DM2, neuropathy, glaucoma and does not drive. Prior Treatments and Tests He sees bank officer for diabetic neuropathy. He got his right great toe nail cut back. He has little sensation in both feet. He was told that he has good circulation in his feet. Pt has superfeet orthotics in shoes that have parts added by bank officer. Pt states that the orthotics first helped him walk toe-heel better but then his right hip started hurting. He has not talked to bank officer again. He has a follow-up in September. These are the only inserts that pt has. Pt goes to the pool, his feet hurt. He does not have pool shoes. He is barefoot when getting OOB at night. Treatment Goals Patient/Caregiver Goals Goal for PT is to decrease pain. PT-OP-C Subjective Start: 07/13/19 07:26 Freq: Status: Active Protocol: Document 08/04/19 13:51 SP (Rec: 08/04/19 15:03 SP [id number]) OP-PT Subjective Patient Comments Patient Comments Pt stated went to the aquatic class this morning and thinks did little to many side kicking, about 4/10 L hip pain with occasional sharp grabbing/ pinching 6/10 with more in ABD than extension. Pt stated was going to do his excercises before tx today to loosen up but to sore. PT-OP-J Posture/Palpation/Skin Start: 07/13/19 07:26 Freq: Status: Active Protocol: Document 07/13/19 15:30 MB (Rec: 07/13/19 16:44 MB [id number]) Posture Evaluation Comments Posture Comments Standing: forward head and shoulders, flexed trunk. Tragus 3 in front of AC joint , decreased thoracic kyphosis and lumbar lordosis, lumbar spinous processes posteriorly protruding, left iliac crest higher than the right. R pes planus greater than the left. PT-OP-M Strength Start: 07/13/19 07:26 Freq: Status: Active Protocol: Document 07/13/19 15:30 MB (Rec: 07/13/19 16:44 MB [id number]) Hip Strength Hip Manual Muscle Testing Left Flexion (L2) 3 Fair Abduction 4 Good Comments Sitting Right Flexion (L2) 3 Fair Abduction 3- Fair- Comments Sitting Knee Strength Knee Manual Muscle Testing Left Flexion (S2) 4 Good Extension (L3) 5 Normal Right Flexion (S2) 4 Good Extension (L3) 5 Normal Ankle/Foot Strength Ankle and Foot Manual Muscle Testing Both Comments Pt with limited AROM B feet, he has B decreased sensation and hx diabetic neuropathy. MMT is not accurate d/t decreased ROM, neuropathy. PT-OP-Q Treatments Start: 07/13/19 07:26 Freq: Status: Active Protocol: Document 08/04/19 13:51 SP (Rec: 08/04/19 15:03 SP [id number]) Cardio Equipment Recumbent Elliptical (Shout For Good) Duration (Minutes) 6 Resistance 3 Seat Position 11 Therapeutic Exercises Supine Exercises Pelvic realignment alignment Reps/Minutes 5 sec x5 Comments Performed this date with cues, 5 reps each exercise Hamstring, calf and AP stretch Reps/Minutes x10 Comments Hamstring calf and AP stretch with belt Prone Exercises hip IR/ER Prone Exercise Name L>R Reps/Minutes 2x10 HS curls Prone Exercise Name knee flexion Side bilateral Resistance AROM Reps/Minutes 5 sec hold x10 Comments cued slow muscular control to tension then hold, progress range w/ rep aubrie. Standing Exercises hip ext Side bilateral Resistance AROM Reps/Minutes 2x20 Comments alternating BLE, cued for upright posture and not extend to arch LS Manual Therapy Treatment Soft Tissue Mobilization STM Body Location R TFL, prox quad Mobilization Type Myofascial Release,Rolling, Strumming Intensity/Depth Moderate Body Position Supine PT-OP-T Assessment and Plan Start: 07/13/19 07:26 Freq: Status: Active Protocol: Document 08/04/19 13:51 SP (Rec: 08/04/19 15:03 SP [id number]) Physical Therapy Assessment Goals 4 Shelter Goal (LTG) Pt will perform progressive HEP including pelvic realignment, flexibility, core and LE strengthening and balance exercises with I by 09/12/19. LTG Duration 8 weeks 3 Shelter Goal (LTG) Pt will present with improved B hip flexion and abduction strength to at least 4/5 with MMT by 09/12/19. LTG Duration 8 weeks 2 Shelter Goal (LTG) Pt will report a 50% improvement in B hip pain by . LTG Duration 8 weeks 1 Shelter Goal (LTG) Pt will perform WNLs on a standardized balance test to decrease fall risk by 09/12/19. LTG Duration 8 weeks Assessment Summary Assessment Pt tolerated biodex warm up today to assist stiffness and with no adverse affect. Pt reported anterior hip pain and tight anterolateral R>L. Reviewed HEP and added new hip ex. Improved in mobility and flexibility post STMs and hip ext/knee flexion exercises. Cued for slow pacing with HS curl and IR/ER rotation with initial to decrease HS cramp. Pt responded well to progressive ROM exercises into hip ext and IR/ER sup>prone> standing today with report of 1/10 hip discomfort at end of tx. Pt stated has a follow up scheduled with PA soon. Pt more upright and larger stride leaving tx today. Physical Therapy Plan Frequency and Duration Frequency of Treatment 2x/Week Duration of Treatment 8 weeks Plan of Care Start Date 07/13/19 Plan of Care End Date 09/12/19 Therapeutic Interventions Therapeutic Interventions Aquatic Therapy,Balance Training,Gait Training,Home Exercise Program,Joint Mobilizations,Manual Therapy, Neuromuscular Re-education, Orthotic/Prosthetic Management ,Patient/Caregiver Education, Self-Care/Home Management,Soft Tissue Mobilization,Taping, Therapeutic Exercises Modalities Cold Pack/Ice Massage,Electric Stimulation,Hot Packs, Ultrasound Other Referrals/Consults Referrals/Consults Recommended Recommend possible orthopedic referral for right hip pain, possible dxs both hips to compare for any degenerative/ arthritic changes. Decreased tolerance of hip extension and flexion and reports of right groin and B lateral hip and SI pain suspicious for degenerative changes. Also ed pt to talk with PA about right hip pain, electrolytes. Next Visit Focus/Plan Next Note Type Treatment Note Next Visit Plan Assess response to added HS curl, lizeth stretch, stand hip ext later after last tx. Con't gentle hip mobsRICHARD and consider AP. Con't progressive exercises
--- NOTE | 2019-08-12 14:30 | PT.OTN ---
Current Diagnoses Sciatica, left side (08/12/19) Physical Therapy Treatment Note PT-OP-A Visit Information Start: 07/13/19 07:26 Freq: Status: Active Protocol: Document 08/12/19 13:51 SP (Rec: 08/12/19 14:38 SP [id number]) Out-Patient Physical Therapy Visit Information Visit Information Visit Type Treatment Note Visit Note Medicare, unlimited visits Pt 11 min late due to took needed phone call. Visit Start Time 13:51 Visit Stop Time 14:30 Total Visit Minutes 39 Visit Number 7/unlimited Number of ADDRESS CHANGE CLERK Visits 2 PT-OP-B Current Condition Start: 07/13/19 07:26 Freq: Status: Active Protocol: Document 07/13/19 15:30 MB (Rec: 07/13/19 16:21 MB [id number]) Current Condition History of Current Condition Onset Date 2 weeks left hip and 1 week right foot Current Complaints Pt reports that he saw provider 2 weeks ago for left hip pain History of Current Condition Pt had been having foot pain for a long time and it took forever to get into the target network analyst. He had plantar fasciitis in left foot 01/25. He got a boot. He then had a fall in the shower room of the pool, hit his right knee on the bench and pulled his left hamstring and calf. His left hip bothered him after that. He walked differently after the hamstring injury. He recently got inserts put in his shoes by target network analyst 1 week ago and it did something to his walking and it pinches in his right hip. PMH includes: DM2, neuropathy, glaucoma and does not drive. Prior Treatments and Tests He sees target network analyst for diabetic neuropathy. He got his right great toe nail cut back. He has little sensation in both feet. He was told that he has good circulation in his feet. Pt has superfeet orthotics in shoes that have parts added by target network analyst. Pt states that the orthotics first helped him walk toe-heel better but then his right hip started hurting. He has not talked to target network analyst again. He has a follow-up in September. These are the only inserts that pt has. Pt goes to the pool, his feet hurt. He does not have pool shoes. He is barefoot when getting OOB at night. Treatment Goals Patient/Caregiver Goals Goal for PT is to decrease pain. PT-OP-C Subjective Start: 07/13/19 07:26 Freq: Status: Active Protocol: Document 08/12/19 13:51 SP (Rec: 08/12/19 14:38 SP [id number]) OP-PT Subjective Patient Comments Patient Comments Pt stated his B hips were hurting pre/during/post aquatic therapy yesterday. Better today, only R hip hurting 3-12/17. His R ankle has been on/off hurting too. Pt reported got a call from medical practioner that CO2 levels were elevated and possibly doing more assessment . PT-OP-J Posture/Palpation/Skin Start: 07/13/19 07:26 Freq: Status: Active Protocol: Document 07/13/19 15:30 MB (Rec: 07/13/19 16:44 MB [id number]) Posture Evaluation Comments Posture Comments Standing: forward head and shoulders, flexed trunk. Tragus 3 in front of AC joint , decreased thoracic kyphosis and lumbar lordosis, lumbar spinous processes posteriorly protruding, left iliac crest higher than the right. R pes planus greater than the left. PT-OP-M Strength Start: 07/13/19 07:26 Freq: Status: Active Protocol: Document 07/13/19 15:30 MB (Rec: 07/13/19 16:44 MB [id number]) Hip Strength Hip Manual Muscle Testing Left Flexion (L2) 3 Fair Abduction 4 Good Comments Sitting Right Flexion (L2) 3 Fair Abduction 3- Fair- Comments Sitting Knee Strength Knee Manual Muscle Testing Left Flexion (S2) 4 Good Extension (L3) 5 Normal Right Flexion (S2) 4 Good Extension (L3) 5 Normal Ankle/Foot Strength Ankle and Foot Manual Muscle Testing Both Comments Pt with limited AROM B feet, he has B decreased sensation and hx diabetic neuropathy. MMT is not accurate d/t decreased ROM, neuropathy. PT-OP-Q Treatments Start: 07/13/19 07:26 Freq: Status: Active Protocol: Document 08/12/19 13:51 SP (Rec: 08/12/19 14:38 SP [id number]) Cardio Equipment Recumbent Elliptical ([place]) Duration (Minutes) 8 Resistance 3 Seat Position 11 Therapeutic Exercises Supine Exercises diaphramatic breathing Reps/Minutes x5 Comments slow in smell flower, slow out blow balloon bridge Reps/Minutes 2x5 Pelvic realignment alignment Reps/Minutes 5 sec x5 Comments Performed this date with cues, 5 reps each exercise Hamstring, calf and AP stretch Reps/Minutes x10 Comments Hamstring calf and AP stretch with belt Prone Exercises hip IR/ER Prone Exercise Name L>R Reps/Minutes 2x10 HS curls Prone Exercise Name knee flexion Side bilateral Resistance AROM Reps/Minutes 5 sec hold x10 Comments cued slow muscular control to tension then hold, progress range w/ rep aubrie. Standing Exercises sit to stands Equipment Used chair Reps/Minutes 2x5 Comments BUE WB on thighs, cued hip hinge nose of toes PT-OP-T Assessment and Plan Start: 07/13/19 07:26 Freq: Status: Active Protocol: Document 08/12/19 13:51 SP (Rec: 08/12/19 14:38 SP [id number]) Physical Therapy Assessment Goals 4 Assistant Field Hockey Coach Goal (LTG) Pt will perform progressive HEP including pelvic realignment, flexibility, core and LE strengthening and balance exercises with I by 09/12/19. LTG Duration 8 weeks 3 Care Home Goal (LTG) Pt will present with improved B hip flexion and abduction strength to at least 4/5 with MMT by 09/12/19. LTG Duration 8 weeks 2 Care Home Goal (LTG) Pt will report a 50% improvement in B hip pain by . LTG Duration 8 weeks 1 Assistant Field Hockey Coach Goal (LTG) Pt will perform WNLs on a standardized balance test to decrease fall risk by 09/12/19. LTG Duration 8 weeks Assessment Summary Assessment Pt responded well to HEP review with no concerns, proper form and pacing demonstrated. Added bridge and sit to stands to increase glut and quad strengthening with positive results. Pt was able to complete sit to stands with BUE supported on B thighs with cuing for hip hinge trunk flexion with slow descent, i mproved decreased effort as reps progressed. Pt stated no pian end of tx, feel pretty good, no pain in hips, good front thigh work out. Physical Therapy Plan Frequency and Duration Frequency of Treatment 2x/Week Duration of Treatment 8 weeks Plan of Care Start Date 07/13/19 Plan of Care End Date 09/12/19 Therapeutic Interventions Therapeutic Interventions Aquatic Therapy,Balance Training,Gait Training,Home Exercise Program,Joint Mobilizations,Manual Therapy, Neuromuscular Re-education, Orthotic/Prosthetic Management ,Patient/Caregiver Education, Self-Care/Home Management,Soft Tissue Mobilization,Taping, Therapeutic Exercises Modalities Cold Pack/Ice Massage,Electric Stimulation,Hot Packs, Ultrasound Other Referrals/Consults Referrals/Consults Recommended Recommend possible orthopedic referral for right hip pain, possible dxs both hips to compare for any degenerative/ arthritic changes. Decreased tolerance of hip extension and flexion and reports of right groin and B lateral hip and SI pain suspicious for degenerative changes. Also ed pt to talk with PA about right hip pain, electrolytes. Next Visit Focus/Plan Next Note Type Treatment Note Next Visit Plan Review HEP: assess added bridge and sit to stands added last tx. Con't gentle hip mobsRICHARD B and consider AP. Con't progressive exercises
--- NOTE | 2019-08-17 14:38 | PT.OTN ---
Current Diagnoses Sciatica, left side (08/17/19) Physical Therapy Treatment Note PT-OP-A Visit Information Start: 07/13/19 07:26 Freq: Status: Active Protocol: Document 08/17/19 13:53 SP (Rec: 08/17/19 15:16 SP [id number]) Out-Patient Physical Therapy Visit Information Visit Information Visit Type Treatment Note Visit Note Medicare, unlimited visits TAPPING MACHINE OPERATOR took patient back 8 min late but seen for full treatment. Visit Start Time 13:53 Visit Stop Time 14:38 Total Visit Minutes 45 Visit Number 8/ unlimited Number of TAPPING MACHINE OPERATOR Visits 3 PT-OP-B Current Condition Start: 07/13/19 07:26 Freq: Status: Active Protocol: Document 07/13/19 15:30 MB (Rec: 07/13/19 16:21 MB [id number]) Current Condition History of Current Condition Onset Date 2 weeks left hip and 1 week right foot Current Complaints Pt reports that he saw provider 2 weeks ago for left hip pain History of Current Condition Pt had been having foot pain for a long time and it took forever to get into the infusion nurse. He had plantar fasciitis in left foot 01/25. He got a boot. He then had a fall in the shower room of the pool, hit his right knee on the bench and pulled his left hamstring and calf. His left hip bothered him after that. He walked differently after the hamstring injury. He recently got inserts put in his shoes by infusion nurse 1 week ago and it did something to his walking and it pinches in his right hip. PMH includes: DM2, neuropathy, glaucoma and does not drive. Prior Treatments and Tests He sees infusion nurse for diabetic neuropathy. He got his right great toe nail cut back. He has little sensation in both feet. He was told that he has good circulation in his feet. Pt has superfeet orthotics in shoes that have parts added by infusion nurse. Pt states that the orthotics first helped him walk toe-heel better but then his right hip started hurting. He has not talked to infusion nurse again. He has a follow-up in September. These are the only inserts that pt has. Pt goes to the pool, his feet hurt. He does not have pool shoes. He is barefoot when getting OOB at night. Treatment Goals Patient/Caregiver Goals Goal for PT is to decrease pain. PT-OP-C Subjective Start: 07/13/19 07:26 Freq: Status: Active Protocol: Document 08/17/19 13:53 SP (Rec: 08/17/19 15:16 SP [id number]) OP-PT Subjective Patient Comments Patient Comments Pt stated hips pretty tight and hurt today. Still hurts over anterior and posterior hip when sitting to long, like at the theatre this past weekend. Feel better after do the exercises and stretches at home and PT tx. PT-OP-J Posture/Palpation/Skin Start: 07/13/19 07:26 Freq: Status: Active Protocol: Document 07/13/19 15:30 MB (Rec: 07/13/19 16:44 MB [id number]) Posture Evaluation Comments Posture Comments Standing: forward head and shoulders, flexed trunk. Tragus 3 in front of AC joint , decreased thoracic kyphosis and lumbar lordosis, lumbar spinous processes posteriorly protruding, left iliac crest higher than the right. R pes planus greater than the left. PT-OP-M Strength Start: 07/13/19 07:26 Freq: Status: Active Protocol: Document 07/13/19 15:30 MB (Rec: 07/13/19 16:44 MB [id number]) Hip Strength Hip Manual Muscle Testing Left Flexion (L2) 3 Fair Abduction 4 Good Comments Sitting Right Flexion (L2) 3 Fair Abduction 3- Fair- Comments Sitting Knee Strength Knee Manual Muscle Testing Left Flexion (S2) 4 Good Extension (L3) 5 Normal Right Flexion (S2) 4 Good Extension (L3) 5 Normal Ankle/Foot Strength Ankle and Foot Manual Muscle Testing Both Comments Pt with limited AROM B feet, he has B decreased sensation and hx diabetic neuropathy. MMT is not accurate d/t decreased ROM, neuropathy. PT-OP-Q Treatments Start: 07/13/19 07:26 Freq: Status: Active Protocol: Document 08/17/19 13:53 SP (Rec: 08/17/19 15:16 SP [id number]) Therapeutic Exercises Supine Exercises bridge Resistance TB #2 loop Reps/Minutes 3x5 Comments then added hip abd Prone Exercises HS curls Prone Exercise Name knee flexion Side bilateral Resistance AROM Reps/Minutes 5 sec hold x10 Comments cued slow muscular control to tension then hold, progress range w/ rep aubrie. Standing Exercises lateral & monster walks Standing Exercise Name lateral and forward Resistance Lv2 TB Reps/Minutes 20 ft x2 laps each sit to stands Equipment Used chair Reps/Minutes 2x5 Comments cued slow eccentric descent PT-OP-T Assessment and Plan Start: 07/13/19 07:26 Freq: Status: Active Protocol: Document 08/17/19 13:53 SP (Rec: 08/17/19 15:16 SP [id number]) Physical Therapy Assessment Goals 4 Shelter Goal (LTG) Pt will perform progressive HEP including pelvic realignment, flexibility, core and LE strengthening and balance exercises with I by 09/12/19. LTG Duration 8 weeks 3 Project Controls Specialist Goal (LTG) Pt will present with improved B hip flexion and abduction strength to at least 4/5 with MMT by 09/12/19. LTG Duration 8 weeks 2 Shelter Goal (LTG) Pt will report a 50% improvement in B hip pain by . LTG Duration 8 weeks 1 Shelter Goal (LTG) Pt will perform WNLs on a standardized balance test to decrease fall risk by 09/12/19. LTG Duration 8 weeks Assessment Summary Assessment Tx focused on LE strengthening progression in standing against resistance, cued for parallel feet for glut facilitation improvement with eccentric LE than concentric LE and slow controlled pacing near a counter for safety, better LS alignment traveling than stationary using TB. Pt reported Anuj stretch is ok initially but then LB on that side starts to hurt and does at home as well so removed from HEP recommended to continue his prone knee flexion slow controlled pacing experiences a good stretch anterior hip. Pt had good results with added hip abd resistance during bridge, required cuing for trans ab and PPT activation to decrease LB recruitment up to 5 reps will continue as HEP. Pt had no pain end of tx in B hips feel pretty good. today with good understanding for HEP then reviewed bridge and sit to stands to increase glut and quad strengthening with positive results. Pt was able to complete sit to stands with BUE supported on B thighs with cuing for hip hinge trunk flexion with slow descent, i mproved decreased effort as reps progressed. Pt stated no pian end of tx, feel pretty good, no pain in hips, good front thigh work out. Physical Therapy Plan Frequency and Duration Frequency of Treatment 2x/Week Duration of Treatment 8 weeks Plan of Care Start Date 07/13/19 Plan of Care End Date 09/12/19 Therapeutic Interventions Therapeutic Interventions Aquatic Therapy,Balance Training,Gait Training,Home Exercise Program,Joint Mobilizations,Manual Therapy, Neuromuscular Re-education, Orthotic/Prosthetic Management ,Patient/Caregiver Education, Self-Care/Home Management,Soft Tissue Mobilization,Taping, Therapeutic Exercises Modalities Cold Pack/Ice Massage,Electric Stimulation,Hot Packs, Ultrasound Other Referrals/Consults Referrals/Consults Recommended Recommend possible orthopedic referral for right hip pain, possible dxs both hips to compare for any degenerative/ arthritic changes. Decreased tolerance of hip extension and flexion and reports of right groin and B lateral hip and SI pain suspicious for degenerative changes. Also ed pt to talk with PA about right hip pain, electrolytes. Next Visit Focus/Plan Next Note Type Treatment Note Next Visit Plan Review HEP: assess added bridge hip abd resistance ( trans ab and PPT), band walks last tx. Con't gentle hip mobs, PA B and consider AP. Con't progressive exercises
--- NOTE | 2019-08-26 15:23 | PT.OTN ---
Current Diagnoses Sciatica, left side (08/26/19) Physical Therapy Treatment Note PT-OP-A Visit Information Start: 07/13/19 07:26 Freq: Status: Active Protocol: Document 08/26/19 14:39 MB (Rec: 08/26/19 15:23 MB [id number]) Out-Patient Physical Therapy Visit Information Visit Information Visit Type Treatment Note Visit Note Medicare, unlimited visits Pt arrives late to treatment, PT sees pt for 38 minutes Visit Start Time 14:39 Visit Stop Time 15:17 Total Visit Minutes 38 Visit Number 9/ unlimited Number of EXECUTIVE WELLNESS PROGRAMS DIRECTOR Visits 3 PT-OP-B Current Condition Start: 07/13/19 07:26 Freq: Status: Active Protocol: Document 07/13/19 15:30 MB (Rec: 07/13/19 16:21 MB [id number]) Current Condition History of Current Condition Onset Date 2 weeks left hip and 1 week right foot Current Complaints Pt reports that he saw provider 2 weeks ago for left hip pain History of Current Condition Pt had been having foot pain for a long time and it took forever to get into the garment steamer. He had plantar fasciitis in left foot 01/25. He got a boot. He then had a fall in the shower room of the pool, hit his right knee on the bench and pulled his left hamstring and calf. His left hip bothered him after that. He walked differently after the hamstring injury. He recently got inserts put in his shoes by garment steamer 1 week ago and it did something to his walking and it pinches in his right hip. PMH includes: DM2, neuropathy, glaucoma and does not drive. Prior Treatments and Tests He sees garment steamer for diabetic neuropathy. He got his right great toe nail cut back. He has little sensation in both feet. He was told that he has good circulation in his feet. Pt has superfeet orthotics in shoes that have parts added by garment steamer. Pt states that the orthotics first helped him walk toe-heel better but then his right hip started hurting. He has not talked to garment steamer again. He has a follow-up in September. These are the only inserts that pt has. Pt goes to the pool, his feet hurt. He does not have pool shoes. He is barefoot when getting OOB at night. Treatment Goals Patient/Caregiver Goals Goal for PT is to decrease pain. PT-OP-C Subjective Start: 07/13/19 07:26 Freq: Status: Active Protocol: Document 08/26/19 14:39 MB (Rec: 08/26/19 15:23 MB [id number]) OP-PT Subjective Patient Comments Patient Comments Pt states that he is feeling better. He reports that he is feeling 65% better since starting PT. He thinks that land PT and aquatic exercise are both helpful. His leg spasms are better and he is taking in more water and electrolytes. He has to be careful with what he has to do in the pool. Pt con't to report pinch in right hip. His left hip is better. He states that RICHARD Zurita orderd a blood test that have to do with too little CO2. 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 PT-OP-J Posture/Palpation/Skin Start: 07/13/19 07:26 Freq: Status: Active Protocol: Document 07/13/19 15:30 MB (Rec: 07/13/19 16:44 MB [id number]) Posture Evaluation Comments Posture Comments Standing: forward head and shoulders, flexed trunk. Tragus 3 in front of AC joint , decreased thoracic kyphosis and lumbar lordosis, lumbar spinous processes posteriorly protruding, left iliac crest higher than the right. R pes planus greater than the left. PT-OP-M Strength Start: 07/13/19 07:26 Freq: Status: Active Protocol: Document 07/13/19 15:30 MB (Rec: 07/13/19 16:44 MB [id number]) Hip Strength Hip Manual Muscle Testing Left Flexion (L2) 3 Fair Abduction 4 Good Comments Sitting Right Flexion (L2) 3 Fair Abduction 3- Fair- Comments Sitting Knee Strength Knee Manual Muscle Testing Left Flexion (S2) 4 Good Extension (L3) 5 Normal Right Flexion (S2) 4 Good Extension (L3) 5 Normal Ankle/Foot Strength Ankle and Foot Manual Muscle Testing Both Comments Pt with limited AROM B feet, he has B decreased sensation and hx diabetic neuropathy. MMT is not accurate d/t decreased ROM, neuropathy. PT-OP-Q Treatments Start: 07/13/19 07:26 Freq: Status: Active Protocol: Document 08/26/19 14:39 MB (Rec: 08/26/19 15:23 MB [id number]) Therapeutic Exercises Other Exercises See modified HEP today, reviewed exercises Comments See assessment comments PT-OP-T Assessment and Plan Start: 07/13/19 07:26 Freq: Status: Active Protocol: Document 08/26/19 14:39 MB (Rec: 08/26/19 15:23 MB [id number]) Physical Therapy Assessment Goals 4 Resin Shaver Goal (LTG) Pt will perform progressive HEP including pelvic realignment, flexibility, core and LE strengthening and balance exercises with I by 09/12/19. 08/26/19: Pt is performing HEP with I using handouts LTG Duration 8 weeks 3 Resin Shaver Goal (LTG) Pt will present with improved B hip flexion and abduction strength to at least 4/5 with MMT by 09/12/19. 08/26/19: Right hip flexion 4/ 5 and causes 4/10 pain in hip; left hip flexion 5/5; right hip abduction 4/5; left hip abduction 5/5 LTG Duration 8 weeks 2 Fpc Goal (LTG) Pt will report a 50% improvement in B hip pain by . 08/26/19: Pt reports a 65% improvement in pain since starting PT. LTG Duration 8 weeks 1 Resin Shaver Goal (LTG) Pt will perform WNLs on a standardized balance test to decrease fall risk by 09/12/19. 08/26/19: Romberg and Romberg with EC at least 30 sec; 1 sec SLS on left foot and unable to SLS on right foot LTG Duration 8 weeks Assessment Summary Assessment Modified HEP: Everyday: Pelvic realignment exercises Diaphragmatic breathing Hamstring, calf and AP stretch Anterior hip stretch Sit to stands 3x/wk: Racquet ball massage different muscle groups Monster walk and crab walk with bands Bridge with band Hip ER/IR in prone Hamstring curl prone Standing hip extension Pt has met the following goals since starting PT: reports of improvement in pain, hip abduction and flexion strength , performance of progressive HEP. He con't with right hip pain that appears degenerative in nature and PT recommends work-up if provider deems appropriate. He con't with imbalance in setting of diabetic neuropathy and he is performing balance exercises for home. He has maximized PT potential. Will d/c PT. Physical Therapy Plan Frequency and Duration Frequency of Treatment 2x/Week Duration of Treatment 8 weeks Plan of Care Start Date 07/13/19 Plan of Care End Date 09/12/19 Therapeutic Interventions Therapeutic Interventions Aquatic Therapy,Balance Training,Gait Training,Home Exercise Program,Joint Mobilizations,Manual Therapy, Neuromuscular Re-education, Orthotic/Prosthetic Management ,Patient/Caregiver Education, Self-Care/Home Management,Soft Tissue Mobilization,Taping, Therapeutic Exercises Modalities Cold Pack/Ice Massage,Electric Stimulation,Hot Packs, Ultrasound Other Referrals/Consults Referrals/Consults Recommended Recommend possible orthopedic referral for right hip pain, possible dxs both hips to compare for any degenerative/ arthritic changes. Decreased tolerance of hip extension and flexion and reports of right groin and B lateral hip and SI pain suspicious for degenerative changes. Discharge Physical Therapy Discharge Comments D/c PT d/t pt has maximized PT potential. His left hip is not bothering him and he has ongoing right hip pain that might be degenerative in nature.
== END 2019-08-28 10:00 | disposition home or self-care (01) ==
LOC: PHYS 14:30
PROVIDERS: PCP Student in an Organized Health Care Education/Training Program; Visit Provider Student in an Organized Health Care Education/Training Program
DX: M54.32 Sciatica, left side (principal)
CPT/HCPCS: 97110; 97140; 97162; 97535

== ENCOUNTER → 2019-09-21 18:42 | Outpatient (ROUT) | payer MEDICARE, OTHER, SELFPAY ==
[2019-09-21 19:22] LABS: Hemoglobin A1C% w Est Avg Glu 6.5 % (4.0-6.0)
== END ==
PROVIDERS: PCP Student in an Organized Health Care Education/Training Program; Visit Provider Student in an Organized Health Care Education/Training Program
DX: E11.21 Type 2 diabetes mellitus with diabetic nephropathy (principal)
CPT/HCPCS: 83036

== ENCOUNTER → 2019-10-07 13:52 | Outpatient (CLI) | payer MEDICARE, OTHER, SELFPAY ==
--- NOTE | 2019-10-07 | DI.RAD.S_ITS ---
PROCEDURE: XR HIP W PEL IF DONE LT MIN 4V INDICATIONS: PAIN IN RIGHT/LEFT HIP TECHNIQUE: AP pelvis with lateral view(s) of the bilateral hip(s). COMPARISON: None. FINDINGS: Bones: No fractures or dislocations. Pelvic ring appears intact. No suspicious bony lesions. Soft tissues: The visualized bowel gas pattern is normal. No suspicious soft tissue calcifications. 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 Dictated by: Adan Stoll M.D. on 10/07/2019 at 15:57 Approved by: Adan Stoll M.D. on 10/07/2019 at 15:57
[2019-10-07 14:53] LABS: Add Manual Diff / Slide Review NO; Basophils Absolute Auto 0 /uL (0-100); Basophils Percent Auto 0.3 % (0-2); Eosinophils Absolute Auto 100 /uL (0-450); Eosinophils Percent Auto 0.9 % (2-4); Hematocrit 42.3 % (41-53); Hemoglobin 14.6 g/dL (13.5-17.5); Lymphocytes Absolute Auto 1800 /uL (1100-4500); Lymphocytes Percent Auto 22.8 % (25-40); Mean Corpuscular HGB Conc 34.6 % (30-36); Mean Corpuscular Hemoglobin 33.6 PG (26-34); Mean Corpuscular Volume 97.3 fL (80-100); Monocytes Absolute Auto 900 /uL (0-900); Monocytes Percent Auto 12.3 % (3-14); Neutrophils Absolute Auto 4900 /uL (1500-7000); Neutrophils Percent Auto 63.7 % (50-75); Platelet Count 201 X10^3/uL (150-400); Red Blood Cell Count 4.35 X10^6/uL (4.5-5.9); Red Cell Distribution Width 13.2 % (11.6-14.8); White Blood Cell Count 7.7 X10^3/uL (4.5-11.0)
[2019-10-07 15:27] LABS: Alanine Aminotransferase 36 IU/L (<50); Albumin 4.6 g/dL (3.5-5.0); Albumin Globulin Ratio 1.6 (1.0-2.8); Alkaline Phosphatase 59 U/L (38-126); Aspartate Aminotransferase 28 IU/L (17-59); BUN Creatinine Ratio 21.3 (6-22); Bilirubin Total 0.4 mg/dL (0.2-1.3); Blood Urea Nitrogen 32 mg/dL (9-20); Calcium 10.2 mg/dL (8.4-10.2); Carbon Dioxide 20 mmol/L (22-32); Chloride 104 mmol/L (98-107); Cholesterol 195 mg/dL (140-199); Estimated Glomerular Filt Rate 44.5 mL/min (>60); Globulin 2.8 g/dL (1.7-4.1); Glucose 92 mg/dL (80-110); HDL Cholesterol 40 mg/dL (40-60); HEMOLYSIS < 15 (0-50); LDL Cholesterol Calculated 90 mg/dL (<100); Potassium 4.5 mmol/L (3.4-5.1); Sodium 139 mmol/L (137-145); Total Protein 7.4 g/dL (6.3-8.2); Triglycerides 323 mg/dL (35-150)
[2019-10-07 17:33] LABS: Hemoglobin A1C% w Est Avg Glu 6.4 % (4.0-6.0)
== END ==
PROVIDERS: PCP Student in an Organized Health Care Education/Training Program; Visit Provider Student in an Organized Health Care Education/Training Program
DX: N18.9 Chronic kidney disease, unspecified (principal); I10 Essential (primary) hypertension; E11.21 Type 2 diabetes mellitus with diabetic nephropathy; Z00.00 Encounter for general adult medical examination without abnormal findings; M25.551 Pain in right hip; M25.552 Pain in left hip
CPT/HCPCS: 36415; 73522; 80053; 80061; 83036; 85025

== ENCOUNTER → 2019-11-26 13:08 | Outpatient (CLI) | payer MEDICARE, OTHER, SELFPAY ==
--- NOTE | 2019-11-26 13:15 | DI.CT.S_ITS ---
PROCEDURE: CT KIDNEY URETER BLADDER (KUB) INDICATIONS: Hematuria TECHNIQUE: Noncontrast 5 mm thick sections acquired from the diaphragms to the symphysis. 5 mm thick coronal and sagittal reformats were then performed. For radiation dose reduction, the following was used: automated exposure control, adjustment of mA and/or kV according to patient size. COMPARISON: [facility], CT, ABDOMEN/PELVIS WITH CONTRAST, 09/21/2015, 15:06. FINDINGS: Image quality: Excellent. Lung bases: Lung bases are clear. Minimal scarring at the left lung base. Heart size is normal. Urinary system: Right kidney is atrophic which is new compared to 2016. No kidney stones. Remotely seen kidney stone in the distal right ureters no longer present. No hydronephrosis or perinephric fat stranding. Both ureters appear non-dilated throughout their expected courses. Bladder is only partially distended limiting evaluation; no calcified bladder stones. There appears to be debris within the urinary bladder, (5/48). Other solid organs: Liver is normal in size. Hepatic steatosis. A few small hepatic hypodensities which are unchanged compared to prior exam and have the appearance of benign cyst or hemangioma. Gallbladder is unremarkable. Pancreas is normal in contours. Spleen is normal in size. No adrenal nodules. Peritoneum and bowel: Unenhanced bowel loops demonstrate normal wall thickness and caliber. Medication tablets in the cecum. No free fluid or air. Nodes and vessels: No retroperitoneal or mesenteric adenopathy by size criteria. Aorta and inferior vena cava are normal in caliber. Minimal ectasia of the abdominal aorta measuring up to 2.5 cm. Moderate calcified atherosclerotic plaque. Abdominal wall: No ventral hernias. Pelvis: No free pelvic fluid. No inguinal hernias or adenopathy. Prostatomegaly. Trace right hydrocele. Bones: No suspicious bony lesions. Moderate bilateral hip DJD. No vertebral body compression fractures. IMPRESSION: 1. No kidney stones. No hydronephrosis. 2. Right kidney atrophy which is new compared to 2016. 3. Marked prostatomegaly. 4. Hepatic steatosis. Dictated by: Castillo Thomas M.D. on 11/26/2019 at 13:52 Approved by: Castillo Thomas M.D. on 11/26/2019 at 14:01
[2019-11-26 14:25] LABS: Add Manual Diff / Slide Review NO; Basophils Absolute Auto 0 /uL (0-100); Basophils Percent Auto 0.4 % (0-2); Eosinophils Absolute Auto 100 /uL (0-450); Hematocrit 42.6 % (41-53); Hemoglobin 14.7 g/dL (13.5-17.5); Lymphocytes Absolute Auto 1600 /uL (1100-4500); Mean Corpuscular HGB Conc 34.4 % (30-36); Mean Corpuscular Hemoglobin 33.3 PG (26-34); Mean Corpuscular Volume 96.8 fL (80-100); Monocytes Absolute Auto 900 /uL (0-900); Monocytes Percent Auto 10.8 % (3-14); Neutrophils Absolute Auto 5500 /uL (1500-7000); Neutrophils Percent Auto 67.8 % (50-75); Platelet Count 203 X10^3/uL (150-400); Red Blood Cell Count 4.41 X10^6/uL (4.5-5.9); Red Cell Distribution Width 13.6 % (11.6-14.8); White Blood Cell Count 8.2 X10^3/uL (4.5-11.0)
[2019-11-26 15:45] LABS: BUN Creatinine Ratio 20.8 (6-22); Blood Urea Nitrogen 27 mg/dL (9-20); Calcium 9.8 mg/dL (8.4-10.2); Carbon Dioxide 24 mmol/L (22-32); Chloride 105 mmol/L (98-107); Estimated Glomerular Filt Rate 52.5 mL/min (>60); Glucose 166 mg/dL (80-110); HEMOLYSIS 31 (0-50); Potassium 4.4 mmol/L (3.4-5.1); Sodium 137 mmol/L (137-145)
== END ==
PROVIDERS: PCP Student in an Organized Health Care Education/Training Program; Referring Provider Student in an Organized Health Care Education/Training Program; Visit Provider Student in an Organized Health Care Education/Training Program
DX: R31.9 Hematuria, unspecified (principal); N26.1 Atrophy of kidney (terminal); N40.0 Benign prostatic hyperplasia without lower urinary tract symptoms; K76.0 Fatty (change of) liver, not elsewhere classified
CPT/HCPCS: 36415; 74176; 80048; 85025

== ENCOUNTER → 2020-03-14 15:06 | Outpatient (CLI) | payer MEDICARE, OTHER, SELFPAY ==
[2020-03-14 16:20] LABS: Add Manual Diff / Slide Review NO; Basophils Absolute Auto 0 /uL (0-100); Basophils Percent Auto 0.4 % (0-2); Eosinophils Absolute Auto 100 /uL (0-450); Hematocrit 40.9 % (41-53); Hemoglobin 14.5 g/dL (13.5-17.5); Lymphocytes Absolute Auto 2000 /uL (1100-4500); Lymphocytes Percent Auto 26.5 % (25-40); Mean Corpuscular HGB Conc 35.5 % (30-36); Mean Corpuscular Hemoglobin 34.4 PG (26-34); Monocytes Absolute Auto 900 /uL (0-900); Monocytes Percent Auto 11.5 % (3-14); Neutrophils Absolute Auto 4500 /uL (1500-7000); Neutrophils Percent Auto 60.6 % (50-75); Platelet Count 215 X10^3/uL (150-400); Red Blood Cell Count 4.22 X10^6/uL (4.5-5.9); Red Cell Distribution Width 12.9 % (11.6-14.8); White Blood Cell Count 7.5 X10^3/uL (4.5-11.0)
[2020-03-14 16:32] LABS: Alanine Aminotransferase 45 IU/L (<50); Albumin 4.7 g/dL (3.5-5.0); Albumin Globulin Ratio 1.6 (1.0-2.8); Alkaline Phosphatase 50 U/L (38-126); Aspartate Aminotransferase 38 IU/L (17-59); BUN Creatinine Ratio 17.8 (6-22); Bilirubin Total 0.5 mg/dL (0.2-1.3); Blood Urea Nitrogen 24 mg/dL (9-20); Calcium 10.3 mg/dL (8.4-10.2); Carbon Dioxide 19 mmol/L (22-32); Chloride 106 mmol/L (98-107); Cholesterol 200 mg/dL (140-199); Estimated Glomerular Filt Rate 50.2 mL/min (>60); Globulin 2.9 g/dL (1.7-4.1); Glucose 153 mg/dL (80-110); HDL Cholesterol 34 mg/dL (40-60); Potassium 4.5 mmol/L (3.4-5.1); Sodium 137 mmol/L (137-145); Total Protein 7.6 g/dL (6.3-8.2)
[2020-03-14 16:35] LABS: Hemoglobin A1C% w Est Avg Glu 7.1 % (4.0-6.0)
[2020-03-14 16:41] LABS: HEMOLYSIS < 15 (0-50)
[2020-03-14 16:46] LABS: Triglycerides 782 mg/dL (35-150)
== END ==
PROVIDERS: PCP Student in an Organized Health Care Education/Training Program; Referring Provider Student in an Organized Health Care Education/Training Program; Visit Provider Student in an Organized Health Care Education/Training Program
DX: I10 Essential (primary) hypertension (principal); E11.21 Type 2 diabetes mellitus with diabetic nephropathy
CPT/HCPCS: 36415; 80053; 80061; 83036; 85025

== ENCOUNTER → 2020-04-20 13:59 | Outpatient (CLI) | payer MEDICARE, OTHER, SELFPAY ==
--- NOTE | 2020-04-20 | DI.RAD.S_ITS ---
PROCEDURE: XR FOREARM RT 2V INDICATIONS: PAIN TECHNIQUE: 2 views of the forearm were acquired. COMPARISON: None. FINDINGS: Bones: No fractures or dislocations. No suspicious bony lesions. Carpal degeneration. Soft tissues: No suspicious soft tissue calcifications or masses. IMPRESSION: No fracture Dictated by: Ralf Medley M.D. on 04/20/2020 at 16:32 Approved by: Ralf Medley M.D. on 04/20/2020 at 16:36
--- NOTE | 2020-04-20 | DI.RAD.S_ITS ---
PROCEDURE: XR RIBS BI MIN 4V W CXR1V INDICATIONS: PAIN, STATUS POST FALL TECHNIQUE: 2 views of the left and right ribs were acquired, along with a single view chest. COMPARISON: None. FINDINGS: Surgical changes and devices: None. Bones and chest wall: No fractures or dislocations. No suspicious bony lesions. Overlying soft tissues appear unremarkable. Lungs and pleura: No pleural effusions or pneumothorax. Lungs appear clear. Mediastinum: Mediastinal contours appear normal. Heart size is normal. IMPRESSION: No rib fracture. No acute disease Dictated by: Ralf Medley M.D. on 04/20/2020 at 15:35 Approved by: Ralf Medley M.D. on 04/20/2020 at 15:36
--- NOTE | 2020-04-20 | DI.RAD.S_ITS ---
PROCEDURE: XR LUMBAR SPINE 2-3V INDICATIONS: PAIN, STATUS POST FALL TECHNIQUE: 3 views of the lumbar spine were acquired. COMPARISON: None. FINDINGS: Bones: Dextroscoliosis. No fracture or focal osseous destruction. Moderate narrowing of the lower lumbar disc spaces from L3-S1. Multilevel degenerative endplate sclerosis and spurring. Diffuse facet arthropathy. Scattered vascular calcifications seen in the aorta. Soft tissues: Overlying bowel gas pattern is normal. No suspicious soft tissue calcifications. IMPRESSION: No fracture Dextroscoliosis Multilevel lumbar spondylosis and facet arthropathy Dictated by: Ralf Medley M.D. on 04/20/2020 at 16:36 Approved by: Ralf Medley M.D. on 04/20/2020 at 16:48
--- NOTE | 2020-04-20 | DI.RAD.S_ITS ---
PROCEDURE: XR HAND LT MIN 3V INDICATIONS: PAIN, status post fall TECHNIQUE: 3 views of the hand(s) acquired. COMPARISON: None. FINDINGS: Bones: No fractures or dislocations. Carpal bones are normally aligned. No suspicious bony lesions. Diffuse osteopenia. Interphalangeal and 1st CMC joint degeneration. Soft tissues: No suspicious soft tissue calcifications. IMPRESSION: No fracture Degenerative changes as above Dictated by: Ralf Medley M.D. on 04/20/2020 at 15:34 Approved by: Ralf Medley M.D. on 04/20/2020 at 15:35
--- NOTE | 2020-04-20 | DI.RAD.S_ITS ---
PROCEDURE: XR WRIST LT MIN 3V INDICATIONS: PAIN, STATUS POST FALL TECHNIQUE: 4 views of the wrist were acquired. COMPARISON: None. FINDINGS: Bones: No fractures or dislocations. No suspicious bony lesions. 1st CMC and triscaphe joint degeneration. Soft tissues: No suspicious soft tissue calcifications. IMPRESSION: No fracture. If the patient's symptoms do not improve recommend followup radiographs in 10 days to assess for healing sclerosis/occult injury. Dictated by: Ralf Medley M.D. on 04/20/2020 at 15:36 Approved by: Ralf Medley M.D. on 04/20/2020 at 15:40
== END ==
PROVIDERS: PCP Student in an Organized Health Care Education/Training Program; Referring Provider Student in an Organized Health Care Education/Training Program; Visit Provider Student in an Organized Health Care Education/Training Program
DX: M54.5 Low back pain (principal); M79.642 Pain in left hand; M18.12 Unilateral primary osteoarthritis of first carpometacarpal joint, left hand; M19.042 Primary osteoarthritis, left hand
CPT/HCPCS: 71111; 72100; 73090; 73110; 73130

== ENCOUNTER → 2020-09-22 14:40 | Outpatient (ROUT) | payer MEDICARE, OTHER, SELFPAY ==
[2020-09-22 14:55] LABS: Add Manual Diff / Slide Review NO; Basophils Absolute Auto 0 /uL (0-100); Basophils Percent Auto 0.8 % (0-2); Eosinophils Absolute Auto 0 /uL (0-450); Eosinophils Percent Auto 0.8 % (2-4); Hematocrit 43.7 % (41-53); Hemoglobin 14.6 g/dL (13.5-17.5); Lymphocytes Absolute Auto 1800 /uL (1100-4500); Lymphocytes Percent Auto 30.7 % (25-40); Mean Corpuscular HGB Conc 33.4 % (30-36); Mean Corpuscular Hemoglobin 32.4 PG (26-34); Mean Corpuscular Volume 97.2 fL (80-100); Monocytes Absolute Auto 700 /uL (0-900); Neutrophils Absolute Auto 3400 /uL (1500-7000); Neutrophils Percent Auto 56.7 % (50-75); Platelet Count 186 X10^3/uL (150-400); Red Cell Distribution Width 13.6 % (11.6-14.8)
[2020-09-22 15:05] LABS: Alanine Aminotransferase 34 IU/L (<50); Albumin 4.5 g/dL (3.5-5.0); Albumin Globulin Ratio 1.7 (1.0-2.8); Alkaline Phosphatase 77 U/L (38-126); Aspartate Aminotransferase 29 IU/L (17-59); BUN Creatinine Ratio 18.3 (6-22); Bilirubin Total 0.7 mg/dL (0.2-1.3); Blood Urea Nitrogen 23 mg/dL (9-20); Calcium 9.9 mg/dL (8.4-10.2); Carbon Dioxide 27 mmol/L (22-32); Chloride 98 mmol/L (98-107); Cholesterol 220 mg/dL (140-199); Estimated Glomerular Filt Rate 54.3 mL/min (>60); Globulin 2.6 g/dL (1.7-4.1); Glucose 444 mg/dL (80-110); HDL Cholesterol 43 mg/dL (40-60); HEMOLYSIS 16 (0-50); Hemoglobin A1C% w Est Avg Glu 13.4 % (4.0-6.0); LDL Cholesterol Calculated 106 mg/dL (<100); Potassium 4.3 mmol/L (3.4-5.1); Sodium 133 mmol/L (137-145); Total Protein 7.1 g/dL (6.3-8.2); Triglycerides 355 mg/dL (35-150)
== END ==
PROVIDERS: PCP Student in an Organized Health Care Education/Training Program; Visit Provider Student in an Organized Health Care Education/Training Program
DX: I10 Essential (primary) hypertension (principal); E11.40 Type 2 diabetes mellitus with diabetic neuropathy, unspecified
CPT/HCPCS: 80053; 80061; 83036; 85025

== ENCOUNTER → 2020-09-28 19:23 | Outpatient (ROUT) | payer MEDICARE, OTHER, SELFPAY ==
[2020-09-28 19:37] LABS: Bilirubin Urine UA NEGATIVE (NEGATIVE); Glucose Urine UA 1+ g/dL (Negative); Ketones Urine UA TRACE (NEGATIVE); Leukocyte Esterase Urine UA TRACE (NEGATIVE); Nitrite Urine UA NEGATIVE (Negative); Occult Blood Urine UA 3+ (Negative); Protein Urine UA TRACE (Negative); Specific Gravity Urine UA <=1.005 (1.000-1.035); Urobilinogen Urine UA 0.2 E.U./dL (0.2); pH Urine UA 5.5 (4.5-8.0)
[2020-09-28 19:40] LABS: Appearance Urine UA Slightly Cloudy; Color Urine UA Yellow
[2020-09-28 19:45] LABS: RBC Urine 5-10/HPF (0-5/HPF); WBC Urine 1-5/HPF (0-5/HPF)
[2020-09-28 19:46] LABS: Bacteria Urine Occasional (0-1); Squamous Epithelial Cell Urine 0-1 /HPF (0-5/HPF)
== END ==
PROVIDERS: PCP Student in an Organized Health Care Education/Training Program; Visit Provider Internal Medicine
DX: N39.0 Urinary tract infection, site not specified (principal)
CPT/HCPCS: 81001; 87077; 87086; 87186

== ENCOUNTER → 2020-10-03 13:52 | Outpatient (CLI) | payer MEDICARE, OTHER, SELFPAY ==
--- NOTE | 2020-10-03 | DI.CT.S_ITS ---
PROCEDURE: CT ABDOMEN PELVIS WO/W CON INDICATIONS: Gross hematuria TECHNIQUE: Optional 5 mm thick noncontrast images acquired from the diaphragm to the symphysis pubis. After the administration of intravenous contrast, 5 mm thick images acquired from the diaphragm to the symphysis pubis after a 10-minute delay. 2 mm thick coronal and sagittal reformats were then performed of the kidneys and ureters. For radiation dose reduction, the following was used: automated exposure control, adjustment of mA and/or kV according to patient size. COMPARISON: [facility], CR, XR LUMBAR SPINE 2-3V, 04/20/2020, 14:15. [facility], CT, CT KIDNEY URETER BLADDER (KUB), 11/26/2019, 13:15. FINDINGS: Image quality: Excellent. Lung bases: Lung bases are clear. Heart size is normal. Urinary system: There is atrophy of the right kidney which is chronic. Normal size of the left kidney. No hydronephrosis. There is dilatation of the mid to distal left ureter, which extends to the ureterovesical junction although the exact etiology is unclear since no urolithiasis is seen. No bladder calculi identified. There is no definite periureteral fat stranding. Minimal bilateral perinephric stranding, technically age indeterminate. Vascular hilar calcifications seen on the right. Other solid organs: Liver is normal in size and enhancement. Gallbladder unremarkable . Biliary system is non dilated. Pancreas enhances normally. Spleen is normal in size and enhancement. No adrenal nodules. Peritoneum and bowel: Bowel loops demonstrate normal wall thickness and caliber. No free fluid or air. Colonic diverticulosis is seen without evidence of acute complication. Nodes and vessels: No retroperitoneal or mesenteric adenopathy by size criteria. Aorta and inferior vena cava are normal in size. Scattered vascular calcifications seen in the aorta. Abdominal wall: No ventral hernias. Pelvis: No pathologic free pelvic fluid. No inguinal hernias or adenopathy. Prostate is enlarged. Mild T11 compression fracture which is age indeterminate although new since 11/26/19. Spondylytic changes and facet arthropathy. IMPRESSION: Overall, grossly unchanged appearance of mildly dilated mid to distal left ureter, grossly unchanged since 11/26/19. No urolithiasis. Chronic atrophy of the right kidney. Enlargement of the prostate. Mild T11 compression fracture, technically age indeterminate and recommend correlation to point tenderness. Dictated by: Ralf Medley M.D. on 10/03/2020 at 16:24 Approved by: Ralf Medley M.D. on 10/03/2020 at 16:39
== END ==
PROVIDERS: PCP Student in an Organized Health Care Education/Training Program; Referring Provider Student in an Organized Health Care Education/Training Program; Visit Provider Student in an Organized Health Care Education/Training Program
DX: R31.0 Gross hematuria (principal); N28.82 Megaloureter; N26.1 Atrophy of kidney (terminal); N40.0 Benign prostatic hyperplasia without lower urinary tract symptoms; M48.54XA Collapsed vertebra, not elsewhere classified, thoracic region, initial encounter for fracture
CPT/HCPCS: 74178; Q9967

== ENCOUNTER 2023-11-05 07:42 | Day surgery (SDC) | payer MEDICARE, OTHER, SELFPAY ==
[2023-11-05 08:18] VITALS: BP 176/71; PULSE 72; RESP 21; TEMP 36.3; O2SAT 98; BMI 29.4
[2023-11-05] MEDS: LACTATED RINGERS 1,000 ML 42 ML IV (08:37)
--- NOTE | 2023-11-05 10:05 | PM.PREOP ---
Pre-operative Note Interval Note History & Physical reviewed/Exam performed by Physician: Yes Changes to H&P: No
[2023-11-05] MEDS: CEFAZOLIN 2 GM/100 ML PREMIX 100 ML IV (10:15)
--- NOTE | 2023-11-05 10:39 | SUR.OPER ---
Supine on padded OR bed, head on pillow, arms secured on padded arm boards at <90 degrees abduction, legs uncrossed, safety belt at thigh, tape over blanket over lower legs.
[2023-11-05] MEDS: BUPIVACAINE LIPOSOME 266 MG/20 ML VIAL INJ (10:43)
[2023-11-05] MEDS: BUPIVACAINE 0.25% (PF) VIAL 30 ML INJ (10:44)
[2023-11-05] MEDS: BACITRACIN 28 GM OINT 1 APPLIC TOP (10:45)
[2023-11-05 11:29] VITALS: BP 153/86; PULSE 77; RESP 20; TEMP 37.1; O2SAT 95
[2023-11-05 11:34] VITALS: BP 151/76; PULSE 64; RESP 17; TEMP 36.9; O2SAT 95
[2023-11-05] MEDS: ONDANSETRON 4 MG/2 ML INJ IV (11:36)
[2023-11-05] MEDS: OXYCODONE IR 5 MG TABLET PO (11:36)
[2023-11-05 11:40] VITALS: BP 138/72; PULSE 64; RESP 21; TEMP 36.9; O2SAT 95
[2023-11-05 11:56] VITALS: BP 132/54; PULSE 65; RESP 21; TEMP 36.9; O2SAT 97
--- NOTE | 2023-11-28 09:40 | P.OP_ITS ---
Operative Date/Time/Diagnoses Date of procedure: 11/28/23 Time of procedure: 08:30 Pre-op diagnosis: Phimosis and balanitis Post-op diagnosis: same Procedure & Clinicians Procedure: 1. Adult circumcision Same procedure as scheduled: Yes Indications: 1. Phimosis 2. Balanitis Surgeon: Harish Rojo Click Yes if Unassisted: Yes Anesthesia Type: General and Local (1.33% Exparel) Operative Notes Findings: 1. Tight distal phimosis associated with redundant prepuce. 2. Moderate chronic inflammatory changes of the glans and internal preputial epithelium. Closure Type: primary Specimen(s): none sent Estimated Blood Loss (mL): 5 Procedure in detail: Patient was positioned supine was administered general anesthesia. The lower abdomen, genitalia, and groin were then prepped and draped in sterile fashion. 1.33% Exparel local anesthetic was then used to perform a dorsal penile and circumferential cutaneous block at the base of the penis. The surgical marking pen was then utilized to make appropriate guide lines on the inner and external preputial skin surface is once the phimotic prepuce was retracted and the inner preputial space cleansed with Betadine. Circumferential incisions were then made on the inner and external preputial skin layer. Blunt dissection was then utilized to clear the intervening subcutaneous tissue from the sub dermis. Hemostasis was attained with electrocautery. Interrupted 4-0 chromic was then placed at the 12, 3, 6, and 9 positions. 4-0 chromic was then used to reapproximate the skin margins utilizing a running vertical mattress. The surgical area was then cleansed and dried. Bacitracin antibiotic ointment plus Xeroform gauze was then applied to the incision line circumferentially. 2 in Kerlix was then wrapped in a non constricting manner over the Xeroform gauze. Now 2 in Coban was utilized to secure the underlying dressing, again in a non constricting manner. Finally 1 in plastic tape was tailored and applied with the adhesive edges opposing each other in the sandwich like fashion to secure the Coban in place. The patient was then awakened, transferred to [facility], and transported to recovery in stable condition. Complications: none Post-operative Condition: stable Disposition: PACU Plan for aftercare: Discharge home.
== END 2023-11-05 12:03 | disposition home or self-care (01) ==
PROVIDERS: PCP Student in an Organized Health Care Education/Training Program; Referring Provider Specialist; Visit Provider Specialist
PROC: (CPT 54161; principal; 2023-11-05 09:30)
DX: N47.1 Phimosis (principal); N48.1 Balanitis; Z87.440 Personal history of urinary (tract) infections
CPT/HCPCS: 54161; C9290; J0360; J0690; J1885; J2405; J2704; J3010

== ENCOUNTER 2024-03-07 14:06 | Emergency (ER) | payer MEDICARE, OTHER, SELFPAY ==
[2024-03-07] VITALS (10 sets, daily range): BP systolic 150–179; BP diastolic 68–77; PULSE 53–75; RESP 17–21; TEMP 36.3; O2SAT 96–98; BMI 29.9
--- NOTE | 2024-03-07 14:15 | DI.RAD.S_ITS ---
PROCEDURE: XR CHEST 1V INDICATIONS: chest pain TECHNIQUE: One view of the chest was acquired. COMPARISON: [facility], CR, XR CHEST 1V, 04/02/2022, 16:32. [facility], CR, XR CHEST 1V, 05/09/2021, 15:55. FINDINGS: Surgical changes and devices: None. Lungs and pleura: Lungs are clear. No pleural effusions or pneumothorax. Mediastinum: Mediastinal contours appear normal. Heart size is normal. Bones and chest wall: No suspicious bony lesions. Overlying soft tissues appear unremarkable. IMPRESSION: No acute cardiopulmonary abnormality is seen. Dictated by: Ford Carranza M.D. on 03/07/2024 at 13:59 Approved by: Ford Carranza M.D. on 03/07/2024 at 13:59
--- NOTE | 2024-03-07 14:15 | EKG_ITS ---
[address] [address] Test Date: 2024-03-07 Pat Name: David Edwards Department: Room: Gender: Male [employer] Hel[employer]: A[place]ER : 1935 Requested By: Order Number: [id number] Reading MD: Bertram Langford Measurements Intervals [place] Rate: 57 P: [place]: QRS: 44 QRSD: 86 T: 50 QT: 420 QTc: 408 Interpretive Statements Undetermined rhythm Low voltage QRS Nonspecific ST abnormality Electronically Signed On 03-08-2024 17:08:29 PDT by Bertram Langford
[2024-03-07 14:29] LABS: Add Manual Diff / Slide Review NO; Basophils Absolute Auto 0 /uL (0-100); Basophils Percent Auto 0.4 % (0-2); Eosinophils Absolute Auto 100 /uL (0-450); Eosinophils Percent Auto 1.1 % (2-4); Hematocrit 39.5 % (41-53); Hemoglobin 13.3 g/dL (13.5-17.5); Lymphocytes Absolute Auto 1700 /uL (1100-4500); Lymphocytes Percent Auto 21.9 % (25-40); Mean Corpuscular HGB Conc 33.7 % (30-36); Mean Corpuscular Hemoglobin 32.2 PG (26-34); Mean Corpuscular Volume 95.6 fL (80-100); Monocytes Absolute Auto 800 /uL (0-900); Monocytes Percent Auto 10.5 % (3-14); Neutrophils Absolute Auto 5000 /uL (1500-7000); Neutrophils Percent Auto 66.1 % (50-75); Platelet Count 148 X10^3/uL (150-400); Red Blood Cell Count 4.14 X10^6/uL (4.5-5.9); Red Cell Distribution Width 16.1 % (11.6-14.8); White Blood Cell Count 7.6 X10^3/uL (4.5-11.0)
[2024-03-07 14:37] LABS: INR 1.3 (0.9-1.3)
[2024-03-07 14:40] LABS: PTT Partial Thromboplastin Tim 38 SECONDS (25.1-36.5)
[2024-03-07 14:43] LABS: Alanine Aminotransferase 27 IU/L (<50); Albumin 4.7 g/dL (3.5-5.0); Albumin Globulin Ratio 1.5 (1.0-2.8); Alkaline Phosphatase 39 U/L (38-126); Aspartate Aminotransferase 30 IU/L (17-59); BUN Creatinine Ratio 20.8 (6-22); Bilirubin Total 0.9 mg/dL (0.2-1.3); Blood Urea Nitrogen 33 mg/dL (9-20); Calcium 9.6 mg/dL (8.4-10.2); Carbon Dioxide 24 mmol/L (22-32); Chloride 106 mmol/L (98-107); Creatine Kinase 63 U/L (55-170); Estimated Glomerular Filt Rate 41 mL/min (>60); Globulin 3.1 g/dL (1.7-4.1); Glucose 167 mg/dL (80-110); HEMOLYSIS < 15 (0-50); Lipase 173 U/L (23-300); Magnesium 1.6 mg/dL (1.6-2.3); Potassium 4.2 mmol/L (3.4-5.1); Sodium 138 mmol/L (137-145); Total Protein 7.8 g/dL (6.3-8.2)
[2024-03-07 14:55] LABS: NT-proBNP (BNP-Adult 18+) 201 pg/mL (<450); Troponin I < 0.012 ng/mL (0.01-0.034)
--- NOTE | 2024-03-07 15:15 | ED.GENADULT ---
HPI - General Adult General Chief complaint: Weakness Stated complaint: Near fainting, irregular heartbeat Time Seen by Provider: 03/07/24 15:04 Source: patient, RN notes reviewed and old records reviewed Limitations: no limitations History of Present Illness HPI narrative: 88-year-old male with history of COPD, CHF, atrial fibrillation, diabetes, hypertension on apixaban daily who presents with complaint of lightheadedness for the past 2 days. Patient states he is felt palpitations like his heart has been irregular. He is felt lightheaded like he might pass out. He states he has not had any syncope but has felt close to it for 5 times particularly since this morning. Denies fevers or chills, no cold cough or congestion. No chest pain, denies any new shortness of breath today but states he sometimes feels short of breath. Denies any nausea or vomiting. States he did have some loose stools but he thinks that was secondary to the water he was drinking. He was putting tap water he is Q-waves in his water thinks that might have contributed. He states he is got chronic urinary issues but no new changes. He states no new swelling in extremities. He does note that he was out of his water pills for about a week, he just restarted them 3 or 4 days ago. He is on Eliquis, alfuzosin, dulaglutide, finasteride, glyburide, lisinopril, propranolol, torsemide. Patient notes that his propranolol was stopped for a period of time secondary to low blood pressure and was restarted 3 or 4 months ago. Patient states he has had prior circumcision, had prior cardiac stents, no prior cardiac ablations. He follows with Dr. Jaramillo with cardiology in [place]. He has had prior orthopedic surgeries. States allergic to codeine he gets a rash. No tobacco, alcohol or recreational drugs. RICHARD Ugalde is his primary care physician. He follows with cardiology in [place]. He is contacted his insurance processor has an appointment in April. Related Data Home Medications Medication Instructions Recorded Confirmed acetaminophen 500 mg capsule 500 mg PO Q6H 12/09/20 11/28/23 cholecalciferol (vitamin D3) 50 50 mcg PO DAILY 12/09/20 11/28/23 mcg (2,000 unit) capsule dorzolamide 2 % eye drops drp ophthalmic (eye) 12/09/20 11/28/23 esomeprazole magnesium 20 mg 20 mg PO DAILY 12/09/20 11/28/23 capsule,delayed release finasteride 5 mg tablet 5 mg PO DAILY 12/09/20 11/28/23 gemfibrozil 600 mg tablet 600 mg PO DAILY 12/09/20 11/28/23 glyburide 1.25 mg tablet 1.25 mg PO DAILY 12/09/20 11/28/23 lisinopril 5 mg tablet 5 mg PO DAILY 12/09/20 11/28/23 melatonin 10 mg capsule 10 mg PO BEDTIME PRN Sleep 12/09/20 11/28/23 psyllium husk 0.4 gram capsule 0.4 g PO DAILY 12/09/20 11/28/23 (Daily Fiber) apixaban 2.5 mg tablet 2.5 mg PO BID 10/17/23 11/28/23 insulin glargine 100 unit/mL 10 unit SUBCUT QPM 10/18/23 11/28/23 subcutaneous solution (Lantus U-100 Insulin) Previous Rx's Medication Instructions Recorded furosemide 20 mg tablet (Lasix) 20 mg PO QAM #3 tabs 05/09/21 metoprolol tartrate 25 mg tablet 12.5 mg (1/2 x 25 mg) PO BID #30 05/09/21 tabs alfuzosin 10 mg tablet,extended 10 mg PO DAILY #20 tabs 05/17/23 release 24 hr nitrofurantoin 100 mg PO Q12H 7 days #14 caps 03/07/24 monohydrate/macrocrystals 100 mg capsule (Macrobid) Allergies Allergy/AdvReac Type Severity Reaction Status Date / Time codeine AdvReac Mild RASH Verified 03/07/24 14:10 Review of Systems Review of Systems ROS Unobtainable: All systems reviewed & are unremarkable except as noted in HPI and below Patient History Medical History Postop check Balanitis 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 History of UTI History of elevated PSA BPH w urinary obs/LUTS COPD (chronic obstructive pulmonary disease) Kidney stone Diabetes Chronic UTI Arthritis Surgical History Vasectomy status H/O hernia repair Hx of appendectomy Social History marital status: number of children: 2 household members: none Smoking Status: Former smoker alcohol intake: never caffeine: Yes Smoking Status: Former smoker alcohol intake frequency: other Substance Use Type: does not use Exam Narrative Exam Narrative: GENERAL: Alert and oriented x three, well-appearing, elderly male mild distress HEENT: Head normocephalic, atraumatic, EOMI, pupils reactive, face symmetric, moist mucous membranes NECK: Supple, full range of motion CARDIOVASCULAR: Irregularly irregular rate and rhythm without murmurs, rubs or gallops. No tachycardia. No JVD. No edema bilateral lower extremities. RESPIRATORY: Breath sounds equal bilaterally, no wheezes rales or rhonchi. No tachypnea or accessory muscle use ABDOMEN: Soft, nontender. Normoactive bowel sounds all 4 quadrants. No guarding or rebound, rigidity, no mass : No CVA tenderness EXTREMITIES: Normal range of motion, no clubbing or edema. Neurovascularly intact NEUROLOGICAL: Cranial nerves II through XII grossly intact. Moving all extremities SKIN: Warm, dry, no petechiae, no rashes or lesions. Initial Vital Signs Initial Vital Signs: Vital Signs Temperature 97.4 F L 03/07/24 14:10 Pulse Rate 53 L 03/07/24 14:10 Respiratory Rate 18 03/07/24 14:10 Blood Pressure 150/70 H 03/07/24 14:10 Pulse Oximetry 98 03/07/24 14:10 Oxygen Delivery Method Room Air 03/07/24 14:10 Course Orders Ordered: Discontinued Medications Sodium Chloride (Normal Saline 0.9%) 1,000 mls @ 1,000 mls/hr IV BOLUS ONE Stop: 03/07/24 16:18 Last Infusion: 03/07/24 16:31 Dose: Infused Documented By: Admin: 03/07/24 15:30 Dose: 1,000 mls/hr Documented By: Vital Signs Vital signs: Vital Signs - 8 hr 03/07/24 14:10 03/07/24 14:31 03/07/24 14:34 Temperature 97.4 F L Pulse Rate 53 L 69 75 Respiratory Rate 18 17 Blood Pressure 150/70 H Pulse Oximetry 98 96 97 Oxygen Delivery Method Room Air 03/07/24 14:34 03/07/24 15:00 03/07/24 15:30 Temperature Pulse Rate 64 64 Respiratory Rate 21 Blood Pressure 156/72 H Pulse Oximetry 98 97 Oxygen Delivery Method 03/07/24 15:31 03/07/24 15:31 Temperature Pulse Rate 62 Respiratory Rate 17 Blood Pressure 155/68 H Pulse Oximetry 97 Oxygen Delivery Method Medical Decision Making Lab Data 03/07/24 14:22 03/07/24 14:22 Labs: Lab Results 03/07/24 03/07/24 Range/Units 14:22 15:15 WBC 7.6 (4.5-11.0) X10^3/uL RBC 4.14 L (4.5-5.9) X10^6/uL Hgb 13.3 L (13.5-17.5) g/dL Hct 39.5 L (41-53) % MCV 95.6 (80-100) fL MCH 32.2 (26-34) PG MCHC 33.7 (30-36) % RDW 16.1 H (11.6-14.8) % Plt Count 148 L (150-400) X10^3/uL Neut % (Auto) 66.1 (50-75) % Lymph % (Auto) 21.9 L (25-40) % [place] % (Auto) 10.5 (3-14) % Eos % (Auto) 1.1 L (2-4) % Baso % (Auto) 0.4 (0-2) % Neut # (Auto) 5000 (3589-3476) /uL Lymph # (Auto) 1700 (0238-3274) /uL [place] # (Auto) 800 (0-900) /uL Eos # (Auto) 100 (0-450) /uL Baso # (Auto) 0 (0-100) /uL PT 15.0 H (9.4-12.5) SECONDS INR 1.3 (0.9-1.3) APTT 38 H (25.1-36.5) SECONDS Sodium 138 (137-145) mmol/L Potassium 4.2 (3.4-5.1) mmol/L Chloride 106 (98-107) mmol/L Carbon Dioxide 24 (22-32) mmol/L BUN 33 H (9-20) mg/dL Creatinine 1.59 H (0.66-1.25) mg/dL Estimated GFR 41 L (>60) mL/min BUN/Creatinine Ratio 20.8 (6-22) Glucose 167 H (80-110) mg/dL Calcium 9.6 (8.4-10.2) mg/dL Magnesium 1.6 (1.6-2.3) mg/dL Total Bilirubin 0.9 (0.2-1.3) mg/dL AST 30 (17-59) IU/L ALT 27 (<50) IU/L Alkaline Phosphatase 39 (38-126) U/L Total Creatine Kinase 63 (55-170) U/L Troponin I < 0.012 (0.01-0.034) ng/mL NT-Pro-B Natriuret Pep 201 (<450) pg/mL Total Protein 7.8 (6.3-8.2) g/dL Albumin 4.7 (3.5-5.0) g/dL Globulin 3.1 (1.7-4.1) g/dL Albumin/Globulin Ratio 1.5 (1.0-2.8) Lipase 173 (23-300) U/L Urine RBC 0-1/hpf (0-5/HPF) Urine WBC >100/hpf H (0-5/HPF) Ur Squamous Epith Cells 0-1 /hpf (0-5/HPF) Urine Bacteria Few (2-10) H (None) Ur Culture Indicated? Specimen cultured Micro UA Comment Vol Urine Centrifuged 10ml (spun) Urine Dip Bedside Urine Glucose Negative Bedside Urine Bilirubin - Negative Bedside Urine Ketone - Negative Urine Specific [place] 1.010 Bedside Urine Occult Blood - Negative Bedside Urine pH 5.5 Bedside Urine Protein - Negative Bedside Urine Urobilinogen - Negative Bedside Urine Nitrite - Negative Bedside Urine Leukocytes +++ 500 Esterase Point of care testing: Urine Dip Bedside Urine Glucose Negative Bedside Urine Bilirubin - Negative Bedside Urine Ketone - Negative Urine Specific [place] 1.010 Bedside Urine Occult Blood - Negative Bedside Urine pH 5.5 Bedside Urine Protein - Negative Bedside Urine Urobilinogen - Negative Bedside Urine Nitrite - Negative Bedside Urine Leukocytes +++ 500 Esterase Imaging Data Chest x-ray: Radiologist's Impression: Close Chest X-Ray (Signed) Ford Carranza - 03/07/24 Shoulder MRI (Signed) Justo Diamond - 05/09/22 Chest X-Ray (Signed) Amado Lala - 04/02/22 Shoulder X-Ray (Signed) Amado Lala - 10/04/21 PFT Result 07/06/21 Echocardiogram Ultrasound (Signed) Panchito Vaughn - 06/13/21 Chest CTA (Signed) Reed Garcia - 05/09/21 Chest X-Ray (Signed) Amado Lala - 05/09/21 Abdomen/Pelvis CT (Signed) GalindoRalf - 10/03/20 Wrist X-Ray (Signed) GalindoRalf - 04/20/20 Ribs w/Chest X-Ray (Signed) MedleyRalf - 04/20/20 Lumbar Spine X-Ray (Signed) Ralf Medley - 04/20/20 Hand X-Ray (Signed) MedleyRalf - 04/20/20 Forearm X-Ray (Signed) MedleyRalf - 04/20/20 Abdomen/Pelvis CT (Signed) Martha,Castillo - 11/26/19 Hip X-Ray (Signed) Adan Stoll - 10/07/19 Chest X-Ray (Signed) Call,Castillo - 06/22/19 Abdominal Arterial Study US (Signed) Radha Tierney - 09/26/18 Chest X-Ray (Signed) Adan Stoll - 09/22/18 Chest X-Ray (Signed) Adan Stoll - 03/10/18 Launch?[place] [address] XRay Report Signed Patient: David Edwards MR#: [id number] : 1935 Acct:[id number] Age/Sex: 88 / M Date of Service: 03/07/24 Loc: ED Accession Number: [id number] Procedure: XR chest 1V Ordering Provider: Rosemary Delatorre D.O. PROCEDURE: XR CHEST 1V INDICATIONS: chest pain TECHNIQUE: One view of the chest was acquired. COMPARISON: [facility], CR, XR CHEST 1V, 04/02/2022, 16:32. [facility], CR, XR CHEST 1V, 05/09/2021, 15:55. FINDINGS: Surgical changes and devices: None. Lungs and pleura: Lungs are clear. No pleural effusions or pneumothorax. Mediastinum: Mediastinal contours appear normal. Heart size is normal. Bones and chest wall: No suspicious bony lesions. Overlying soft tissues appear unremarkable. IMPRESSION: No acute cardiopulmonary abnormality is seen. Dictated by: Ford Carranza M.D. on 03/07/2024 at 13:59 Approved by: Ford Carranza M.D. on 03/07/2024 at 13:59 ECG Data Attestation: I personally reviewed and interpreted this ECG as follows: Prior ECG tracings: available for review Interpretation: Patient has possible atrial rhythm rate of 57, QRS 86 QTC of 408, no acute ST elevation depression. Patient has a little bit of prolonging of pr interval but no dropped beats MDM Narrative Medical decision making narrative: 88-year-old male with known history of atrial fibrillation does have appears to be prolonged [place] intervals sometimes different legs but no dropped beats appreciated. Patient has been able to ambulate bathroom without issue. He does note that he was stopped on his propranolol for some time because his blood pressure was too low but restarted a couple of months ago. Patient's workup includes a white count of 7.6 hemoglobin of 13.3 platelet 148, creatinine elevated 1.59 up from prior at 1.07 with a BUN of 33, glucose is 167, sodium is 138 potassium 4.2 chloride 106 and a CO2 24, troponins less than 0.012 then BNP of 201. Chest x-ray is negative Patient has prior EKGs show atrial fibrillation has a heart rate in the 60s, patient's heart rates been 50s to 60s today with regular pattern. Point of care shows leukocyte esterase, microscopy shows 1 RBC greater than 100 WBCs 1 squamous, few bacteria. Was sent for culture. Discussed with patient he is able to ambulate without issues he was given a L for hydration states he might be little dehydrated. Reviewed patient's labs and findings today we will have patient hold his propranolol, he has a call out to his insurance processor to discuss following up. Discussed if any worsening symptoms patient should return. Discharge Plan Departure Patient Disposition: Home Clinical Impression: Bradycardia, UTI (urinary tract infection) Activity Restrictions/Additional Instructions: Please stop your propranolol that is this improves your heart rhythm, your shown to be irregular slow on your rhythm today but with P waves with every QRS. Propranolol console your heart rate down but also decrease your blood pressure. Your urine has been sent for culture, this takes 48-72 hours to result. If your urine culture shows resistance to the antibiotic you has been prescribed we will contact you to change it. If the culture shows that the antibiotic is appropriate we will not contact you. Prescription sent to [facility]. Follow up with your insurance processor, discussed having Holter monitor or ZIO patch to continue monitoring rhythm. If you are having any worsening symptoms, increasing lightheadedness, passing out, new chest pain or shortness of breath, vomiting, new swelling of the extremities or other new or concerning changes please return to the emergency department. Prescriptions: New nitrofurantoin monohyd/m-cryst [Macrobid] 100 mg capsule 100 mg PO Q12H 7 Days Qty: 14 0RF Rx Instructions: must administer with a meal/food No Action cholecalciferol (vitamin D3) 50 mcg (2,000 unit) capsule 50 mcg PO DAILY melatonin 10 mg capsule 10 mg PO BEDTIME PRN (Reason: Sleep) gemfibrozil 600 mg tablet 600 mg PO DAILY glyburide 1.25 mg tablet 1.25 mg PO DAILY finasteride 5 mg tablet 5 mg PO DAILY psyllium husk [Daily Fiber] 0.4 gram capsule 0.4 g PO DAILY esomeprazole magnesium 20 mg capsule,delayed release(DR/EC) 20 mg PO DAILY dorzolamide 2 % drops ophthalmic (eye) lisinopril 5 mg tablet 5 mg PO DAILY acetaminophen 500 mg capsule 500 mg PO Q6H alfuzosin 10 mg tablet extended release 24 hr 10 mg PO DAILY Qty: 20 0RF Rx Instructions: administer after the same meal each day insulin glargine [Lantus U-100 Insulin] 100 unit/mL solution 10 unit SUBCUT QPM metoprolol tartrate 25 mg tablet 12.5 mg PO BID Qty: 30 0RF furosemide [Lasix] 20 mg tablet 20 mg PO QAM Qty: 3 0RF apixaban 2.5 mg tablet 2.5 mg PO BID Referrals: Yudith Ugalde PA-C [Primary Care Provider] - Stand Alone Forms: Patient Portal/API
[2024-03-07] MEDS: SODIUM CHLORIDE 0.9% 1,000 ML 1000 ML IV (15:30)
[2024-03-07 15:36] LABS: Culture Indicated Urine Specimen Cultured; RBC Urine 0-1/HPF (0-5/HPF); Squamous Epithelial Cell Urine 0-1 /HPF (0-5/HPF); Urine Volume 10mL (spun); WBC Urine >100/HPF (0-5/HPF)
[2024-03-07 15:37] LABS: Bacteria Urine Few (2-10)
--- NOTE | 2024-03-07 16:33 | PC.NURSE ---
Pt ambulatory to discharge with steady gait at his baseline. Pt requesting discharge. Provider made aware. Provider to reassess patient.
== END 2024-03-07 16:47 | disposition home or self-care (01) ==
PROVIDERS: Emergency Provider Emergency Medicine; PCP Student in an Organized Health Care Education/Training Program
DX: N39.0 Urinary tract infection, site not specified (principal); R00.1 Bradycardia, unspecified; R07.9 Chest pain, unspecified; Z79.01 Long term (current) use of anticoagulants; Z79.899 Other long term (current) drug therapy
CPT/HCPCS: 36415; 71045; 80053; 81003; 81015; 82550; 83690; 83735; 83880; 84484; 85025; 85610; 85730; 87077; 87086; 87186; 93005; 96360; 99284